=== PATIENT | male | born 1935 | race African-American/Black ===

== ENCOUNTER 2016-07-20 00:40 | Inpatient (IN) | payer MEDICARE, BC ==
[2016-07-20] MEDS ORDERED: METHYLPREDNISOLONE PF 125MG/VIAL IM ONE (00:43)
[2016-07-20] MEDS ORDERED: METHYLPREDNISOLONE PF 125MG/VIAL IVP ONE (00:45)
[2016-07-20] MEDS ORDERED: ALBUTEROL SULFATE 0.5% 5 MG/ML BTL 20ML INH SCH (00:45)
--- NOTE | 2016-07-20 01:09 | Emergency Department Record ---
History of Present Illness - General Chief Complaint: Shortness of breath Stated Complaint: SOB Time Seen by Provider: 07/20/16 00:42 Source: Patient Mode of Arrival: EMS Limitations: No limitations - History of Present Illness Initial Comments: 80 yo male presents to ED with a CC of worsening difficulty in breathing for the past 2-3 days. Patient reports a history of COPD and CHF, reports audible wheezes that did not significantly improve with albuterol at home. Patient denies fevers, chills, or recent illness. Patient denies lower extremity edema. MD Complaint: Shortness of breath Onset/Timin -: Days(s) Severity: Moderate Consistency: Intermittent Improves With: Rest Worsens With: Exertion, Lying flat, Movement Known History Of: Congestive heart failure, COPD Associated Symptoms: Cough Treatments Prior to Arrival: None - Related Data Home Oxygen Therapy: Yes Home Oxygen Amount: 2 Liters Home Medications Medication Instructions Recorded Confirmed Last Taken Amlodipine Besylate [Amlodipine 2.5 mg PO DAILY 05/11/14 07/20/16 Unknown Besylate] Atorvastatin Calcium [Lipitor] 20 mg PO QHS 05/11/14 07/20/16 07/19/16 Carvedilol [Carvedilol] 3.125 tab PO QHS 05/11/14 07/20/16 07/19/16 Allergies Allergy/AdvReac Type Severity Reaction Status Date / Time No Known Drug Allergies Allergy Verified 05/11/14 18:21 Travel Screening - Travel/Exposure Within Last 30 Days Have you traveled within the last 30 days?: No - Travel Symptoms Symptom Screening: None Review of Systems Constitutional: Denies: Chills, Fever, Malaise, Night sweats Eyes: Denies: Eye discharge, Eye pain ENT: Denies: Congestion, Ear pain, Epistaxis Respiratory: Reports: Dyspnea, Wheezes. Denies: Cough Cardiovascular: Reports: Dyspnea on exertion. Denies: Chest pain Endocrine: Denies: Fatigue, Heat or cold intolerance Gastrointestinal: Denies: Abdominal pain, Nausea, Vomiting Genitourinary: Denies: Incontinence, Retention Musculoskeletal: Denies: Arthralgia, Back pain, Gout, Joint swelling Skin: Denies: Bruising, Change in color Neurological: Denies: Abnormal gait, Confusion, Headache, Seizure Psychiatric: Denies: Anxiety Hematological/Lymphatic: Denies: Anemia, Blood Clots Past Medical History - SOCIAL HISTORY Smoking Status: Former smoker - RESPIRATORY Hx Respiratory Disorders: Yes Hx COPD: Yes (home O2- 2L) - CARDIOVASCULAR Hx Cardio Disorders: Yes Hx CHF: Yes Hx Heart Attack: Yes Hx Hypertension: Yes - NEURO Hx Neuro Disorders: No - GI Hx GI Disorders: No - Hx Genitourinary Disorders: No - ENDOCRINE Hx Endocrine Disorders: No - MUSCULOSKELETAL Hx Musculoskeletal Disorders: No - PSYCH Hx Psych Problems: No - HEMATOLOGY/ONCOLOGY Hx Hematology/Oncology Disorders: No Family Medical History Any Significant Family History?: Yes Hx Heart Disease: Father Hx HTN: Mother Physical Exam - General General Appearance: Alert, Oriented x3, Cooperative, Moderate distress Limitations: No limitations - Head Head exam: Atraumatic, Normocephalic, Normal inspection Head exam detail: negative: Abrasion, Contusion, Anton's sign, General tenderness, Hematoma, Laceration - Eye Eye exam: Normal appearance. negative: Conjunctival injection, Periorbital swelling, Periorbital tenderness, Scleral icterus - ENT Ear exam: negative: Auricular hematoma, Auricular trauma Nasal Exam: negative: Active bleeding, Discharge, Dried blood, Foreign body Mouth exam: negative: Drooling, Laceration, Muffled voice, Tongue elevation - Neck Neck exam: Normal inspection. negative: Meningismus, Tenderness - Respiratory Respiratory exam: Decreased breath sounds, Prolonged expiratory, Respiratory distress, Wheezes. negative: Rales, Rhonchi, Stridor - Cardiovascular Cardiovascular Exam: Regular rate, Normal rhythm, Normal heart sounds - GI/Abdominal GI/Abdominal exam: Soft. negative: Rebound, Rigid, Tenderness - Rectal Rectal exam: Deferred - exam: Deferred - Extremities Extremities exam: Normal inspection, Pedal edema (1+). negative: Calf tenderness, Tenderness - Back Back exam: Denies: CVA tenderness (R), CVA tenderness (L) - Neurological Neurological exam: Alert, Normal gait, Oriented X3 - Psychiatric Psychiatric exam: Normal affect, Normal mood - Skin Skin exam: Normal color. negative: Abrasion Type of lesion: negative: abrasion Course Vital Signs 07/20/16 00:40 Temperature 98.1 F Pulse Rate 83 Respiratory 18 Rate Blood Pressure 202/125 Pulse Ox 95 - Reevaluation(s) Reevaluation #1: 07/20/16 01:08 Continuous albuterol ordered over 1 hour and solumedrol IV. EKG: NSR 75 LAD, IVCD/Incomplete LBBB Nonspecific ST-T wave changes Reevaluation #2: 07/20/16 01:46 CXR: Probably RLL infiltrate Antibiotics ordered for probable CAP. Reevaluation #3: 07/20/16 02:25 Labs reviewed, Troponin 0.025, BNP 1110. Creatinine 1.7 (at baseline). Labs are otherwise grossly unremarkable for an acute process. Will admit for moderate to severe COPD exacerbation and CAP. Medical Decision Making - Lab Data Result diagrams: 07/20/16 00:50 07/20/16 00:50 Disposition Disposition: Admit Clinical Impression: COPD exacerbation, CAP (community acquired pneumonia) Disposition: Still a Patient at [facility] Decision to Admit: Admit from ER Decision to Admit Date: 07/20/16 Decision to Admit Time: 01:48 Condition: (2) Stable Forms: Patient Portal Access Time of Disposition: 02:26
[2016-07-20 01:29] LABS: BASO % 0.5 % (0-6); EOS % 3.6 % (0-6); GRAN % 61.5 % (47-80); HEMATOCRIT 38.3 % (42.0-52.0); HEMOGLOBIN 11.9 gm/dl (14.0-18.0); LYMPH % 21.4 % (16-45); MEAN CORPUSCULAR HGB CONC 31.1 g/dl (32-36); PLATELET COUNT 171 K/uL (130-400); RED BLOOD COUNT 4.12 M/uL (4.40-5.70); RED CELL DISTRIBUTION WIDTH 14.1 % (11.5-14.5); WHITE BLOOD COUNT W/O DIFF 4.4 K/uL (4.2-12.2)
[2016-07-20 01:32] LABS: MEAN CORPUSCULAR HEMOGLOBIN 28.8 pg (27-33)
[2016-07-20] MEDS ORDERED: AZITHROMYCIN 500 MG in 0.9 % SODIUM CHLORIDE 250ML 250 ML IVPB ONE (01:47)
[2016-07-20] MEDS ORDERED: CEFTRIAXONE SODIUM 1 GM in 0.9 % SODIUM CHLORIDE 100ML 100 ML IVPB ONE (01:47)
[2016-07-20 01:58] LABS: ALB/GLOB RATIO 1.2 (1.1-1.8); ALBUMIN 3.9 gm/dL (3.5-5.0); BILIRUBIN,TOTAL 0.41 mg/dL (0.2-1.3); CREATININE 1.7 mg/dL (0.66-1.25); TOTAL PROTEIN 7.2 gm/dL (6.3-8.2)
[2016-07-20 02:11] LABS: CKMB 0.9 ug/L (0-6); TROPONIN I 0.025 ng/mL (0.00-0.034)
[2016-07-20] MEDS ORDERED: AZITHROMYCIN 500 MG in 0.9 % SODIUM CHLORIDE 250ML 250 ML IVPB SCH (03:21)
[2016-07-20] MEDS ORDERED: CEFTRIAXONE SODIUM 1 GM in 0.9 % SODIUM CHLORIDE 100ML 100 ML IVPB SCH (03:21)
[2016-07-20] MEDS ORDERED: 0.9 % SODIUM CHLORIDE 1000ML 1,000 ML IV PRN (03:21)
[2016-07-20] MEDS: IPRATROPIUM/ALBUTEROL (0.5MG/3MG) NEB INH PRN (05:06)
[2016-07-20] MEDS: ALBUTEROL SULFATE (0.083%) 2.5 MG/3 ML NEB INH SCH ×5 (06:25→21:49)
[2016-07-20] MEDS: AMLODIPINE BESYLATE 5MG TAB PO SCH (09:43)
[2016-07-20] MEDS ORDERED: CARVEDILOL 3.125 MG TABLET PO SCH ×3 (10:00→22:00)
[2016-07-20] MEDS ORDERED: METHYLPREDNISOLONE PF 125MG/VIAL IVP SCH (10:00)
[2016-07-20] MEDS ORDERED: AMLODIPINE BESYLATE 2.5 MG PO SCH (10:00)
[2016-07-20] MEDS: CARVEDILOL 12.5 MG TABLET PO SCH ×2 (11:19→22:24)
[2016-07-20] MEDS: CEFTRIAXONE SODIUM 1 GM in 0.9 % SODIUM CHLORIDE 100ML 100 ML IVPB SCH (15:54)
[2016-07-20] MEDS: PREDNISONE 20 MG TAB PO SCH ×2 (16:54→22:30)
[2016-07-20] MEDS: ENOXAPARIN 40 MG/0.4 ML SYR SQ SCH (16:54)
[2016-07-20] MEDS: ATORVASTATIN 20 MG TABLET PO SCH (22:25)
[2016-07-21] MEDS: ALBUTEROL SULFATE (0.083%) 2.5 MG/3 ML NEB INH SCH ×6 (01:24→21:47)
[2016-07-21] MEDS ORDERED: CEFTRIAXONE SODIUM 1 GM in 0.9 % SODIUM CHLORIDE 100ML 100 ML IVPB SCH (02:00)
[2016-07-21] MEDS ORDERED: AZITHROMYCIN 500 MG in 0.9 % SODIUM CHLORIDE 250ML 250 ML IVPB SCH (03:00)
[2016-07-21] MEDS: CEFTRIAXONE SODIUM 1 GM in 0.9 % SODIUM CHLORIDE 100ML 100 ML IVPB SCH ×2 (03:01→15:00)
--- NOTE | 2016-07-21 07:29 | RADIOLOGY REPORT ---
EXAM: CHEST, AP PORTABLE VIEW HISTORY: PATIENT HAS ACUTE SHORTNESS OF BREATH. TECHNIQUE: A single AP portable view of the chest was provided along with the comparison study dated 07/12/13. FINDINGS: Cardiomegaly is noted. Tortuosity of the thoracic aorta is noted. Prominent hilar pulmonary vasculature are identified. Bilateral lower lobe atelectasis and/or infiltrate is noted. Mild to moderate bilateral pleural effusions are identified. No pneumothorax is noted. IMPRESSION: BILATERAL LOWER LOBE INFILTRATES ARE IDENTIFIED WITH PLEURAL EFFUSIONS. FOLLOW- UP PA AND LATERAL VIEWS OF THE CHEST CAN BE OBTAINED UNTIL RESOLUTION OF FINDINGS. JOB NUMBER: [id number] MTDD
--- NOTE | 2016-07-21 09:31 | History and Physical Report ---
DATE OF DICTATION: 07/20/2016 at 1:51 p.m. CHIEF COMPLAINT: Dyspnea for the last two to three days. Cough and congestion. HISTORY OF PRESENT ILLNESS: The patient also ran out of his blood pressure medications a couple of months ago and his inhaler about a year ago or two years ago; it is hard to tell from his history. 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 He kind of goes to the doctor when he runs out of medications and as needed. He states it has been a long time since he has seen his baller tender. He was admitted to [facility] in 2013 with a slightly elevated troponin. It is not clear if he had a myocardial infarction or was just diagnosed with coronary artery disease after that. PAST MEDICAL HISTORY: He has congestive heart failure. He had a myocardial infarction possibly in 2013. Hypertension. He is on home oxygen only at night for chronic obstructive pulmonary disease. PAST SURGICAL HISTORY: He had an aortic aneurysm repair, date unknown by the chart. I will have to ask him that later. MEDICATIONS ON ADMISSION: Amlodipine; he has run out of this. It states in the chart here he takes 10 mg a day. Although according to the nurse the amlodipine may be taken at 5.0 mg a day. Carvedilol 3.125 mg b.i.d., but I believe that has been revised to 25 mg b.i.d. Lipitor 20 mg at h.s. He is on home oxygen only at night two liters per nasal cannula. He has had inhalers in the past, but he ran out of those and never refilled them. ALLERGIES: No known drug allergies. FAMILY/PSYCHOSOCIAL HISTORY: His father had heart disease. His mother had hypertension. He is a former smoker; he quit smoking in 2010. No alcohol or drug use. REVIEW OF SYSTEMS: HEENT: He does have some congestion and rhinorrhea; worse the last two or three days. He states that his has also had congestion and a cough for the last week. He also has a 13-year-old grandson who has a cough and congestion. Cardiovascular: No chest pain or palpitations. Respiratory: He is short of breath, especially with exertion. Last night he was more short of breath and required breathing treatments. He was seen in the emergency department by Dr. Shultz and was admitted to the hospital. Gastrointestinal: No nausea, vomiting, diarrhea, black stools, or bloody stools. Genitourinary: He has nocturia times two. He urinates about every three hours. No pain on urination or blood in the urine. Musculoskeletal: No joint or bone abnormalities. However, he does have diffuse arthritis. Neurologic: No cerebrovascular accident, paralysis, or paraesthesias. Endocrine: No diabetes or thyroid disease. Integument: No rash, ulcers, changing moles, or yellow skin. PHYSICAL EXAMINATION: General: Height is 5 feet, 9 inches. Weight is 202 pounds. Vital Signs: Temperature is 97.8, pulse is 89, blood pressure is 165/89, respiratory rate is 16, pulse oximetry is 96% on two liters per nasal cannula. Looking back since he was admitted through the emergency room last night, his pulse oximetry has been good with two liters per nasal cannula. His blood pressure was much higher when he came into the emergency room; it was 202/125. It has been high throughout the night. It has been coming down since he has been on the correct medications. HEENT: Pupils are equal, round, and reactive to light and accommodation. Extraocular muscles are intact. The throat is clear. The nose is clear. The tympanic membranes are uriostegui. Neck: The neck is supple. No jugular venous distension. No hepatojugular reflex. No carotid bruit. The thyroid is smooth. Cardiovascular: Regular rate and rhythm without murmurs, clicks, rubs, or gallops. Respiratory: Decreased breathing bilaterally. There is scant wheezing bilaterally, but he says he was wheezing quite a bit when he came into the emergency department last night. Abdomen: Soft and nontender. No hepatosplenomegaly. No masses. No tenderness. Bowel sounds are active. No bruit. Extremities: No pitting edema. No cyanosis. No clubbing. Full range of motion. Peripheral pulses are good. Breasts: Normal male breasts. Rectal Examination: Deferred. Genitalia: Deferred. Neurological Examination: Cranial nerves II through XII are intact. No gross defect. Sensation is normal. Strength is normal. Deep tendon reflexes are equal bilaterally. Babinski is negative. Mental Status: Alert and oriented times three. IMPRESSIONS: 1. Bilateral pneumonia. 2. Acute exacerbation of chronic obstructive pulmonary disease. 3. Coronary artery disease with a myocardial infarction possibly in 2013. 4. Status post aortic aneurysm repair many years ago. 5. Hypercholesterolemia. 6. Hypoxia requiring home oxygen when sleeping. PLAN: Intravenous Rocephin, intravenous azithromycin, oxygen therapy. Prednisone 20 mg b.i.d. after the intravenous prednisone he had today. Will start that today. Breathing treatments with DuoNeb q. four hours while awake and albuterol every one to two hours p.r.n. Dung Galaviz D.O. Date Time JOB NUMBER: [id number] MTDD
[2016-07-21] MEDS: ENOXAPARIN 40 MG/0.4 ML SYR SQ SCH (09:52)
[2016-07-21] MEDS: AMLODIPINE BESYLATE 5MG TAB PO SCH (09:52)
[2016-07-21] MEDS: CARVEDILOL 12.5 MG TABLET PO SCH ×2 (09:52→20:54)
[2016-07-21] MEDS: PREDNISONE 20 MG TAB PO SCH ×2 (09:53→20:55)
[2016-07-21] MEDS: ATORVASTATIN 20 MG TABLET PO SCH (20:55)
[2016-07-22] MEDS: CARVEDILOL 12.5 MG TABLET PO SCH ×3 (00:57→21:17)
[2016-07-22] MEDS: ATORVASTATIN 20 MG TABLET PO SCH ×2 (00:57→21:17)
[2016-07-22] MEDS: PREDNISONE 20 MG TAB PO SCH ×3 (00:58→21:18)
[2016-07-22] MEDS: CEFTRIAXONE SODIUM 1 GM in 0.9 % SODIUM CHLORIDE 100ML 100 ML IVPB SCH ×2 (00:59→15:35)
[2016-07-22] MEDS: IPRATROPIUM/ALBUTEROL (0.5MG/3MG) NEB INH PRN (02:50)
[2016-07-22] MEDS: ALBUTEROL SULFATE (0.083%) 2.5 MG/3 ML NEB INH SCH ×6 (06:14→21:31)
[2016-07-22] MEDS: AMLODIPINE BESYLATE 5MG TAB PO SCH (09:26)
[2016-07-22] MEDS: ENOXAPARIN 40 MG/0.4 ML SYR SQ SCH (09:26)
[2016-07-22] MEDS: AZITHROMYCIN 500 MG TABLET PO SCH (09:27)
[2016-07-22 10:26] LABS: CREATININE 1.7 mg/dL (0.66-1.25)
[2016-07-22 10:27] LABS: CKMB 1.7 ug/L (0-6); TROPONIN I 0.027 ng/mL (0.00-0.034)
[2016-07-23] MEDS ORDERED: LOPERAMIDE 2 MG CAPSULE PO PRN (02:03)
[2016-07-23] MEDS: CEFTRIAXONE SODIUM 1 GM in 0.9 % SODIUM CHLORIDE 100ML 100 ML IVPB SCH (02:07)
[2016-07-23] MEDS: ALBUTEROL SULFATE (0.083%) 2.5 MG/3 ML NEB INH SCH ×2 (02:29→06:08)
--- NOTE | 2016-07-23 08:14 | Discharge Note ---
Discharge Note - Date Date of Discharge Note: 07/23/16 Condition: (2) Stable Additional Instructions: follow up with dr. Galaviz on thursdayjul 28 use home oxygen 2 liters per minute Forms: Patient Portal Access
--- NOTE | 2016-07-23 08:44 | Discharge Note ---
Discharge Note - Date Date of Discharge Note: 07/23/16 Disposition: Home, Self-Care Condition: (2) Stable Additional Instructions: follow up with dr. Galaviz on thursdayjul 28 use home oxygen 2 liters per minute Prescriptions: Prednisone [Prednisone 10Mg] 30 mg PO DAILYWM #18 tab Albuterol Sulfate [Proair Hfa] 1 - 2 puff IH .EVERY 4-6 HOURS PRN #1 inhaler PRN Reason: Difficulty In Breathing Azithromycin [Zithromax] 500 mg PO DAILY #7 tab Referrals: Dung Galaviz D.O. [Primary Care Provider] - Forms: Patient Portal Access
[2016-07-23] MEDS: CARVEDILOL 12.5 MG TABLET PO SCH (09:20)
[2016-07-23] MEDS: ENOXAPARIN 40 MG/0.4 ML SYR SQ SCH (09:21)
[2016-07-23] MEDS: AMLODIPINE BESYLATE 5MG TAB PO SCH (09:21)
[2016-07-23] MEDS: AZITHROMYCIN 500 MG TABLET PO SCH (09:22)
[2016-07-23] MEDS ORDERED: IPRATROPIUM/ALBUTEROL (0.5MG/3MG) NEB INH SCH (10:00)
[2016-07-23] MEDS ORDERED: PREDNISONE 10 MG TAB PO SCH (10:00)
[2016-07-23] MEDS ORDERED: ALBUTEROL SULFATE (0.083%) 2.5 MG/3 ML NEB INH SCH (10:00)
--- NOTE | 2016-07-25 08:17 | Discharge Summary ---
DATE OF DISCHARGE: 07/23/2016 at about 9:00 a.m. DISCHARGE DIAGNOSES: 1. Pneumonia. 2. Acute exacerbation of chronic obstructive pulmonary disease. 3. Status post aortic aneurysm repair many years ago. 4. Hypercholesterolemia. 5. Uses oxygen at home two liters per minute with hypoxia. 6. A history of coronary artery disease. ATTENDING PHYSICIAN: Dung Galaviz D.O. REASON FOR HOSPITALIZATION: Dyspnea for the last two to three days. Cough and congestion. HISTORY OF THE PRESENT ILLNESS: The patient ran out of his blood pressure medication a couple of months ago and his blood pressure has been very high. He came to the emergency department with dyspnea and was admitted to the hospital by Dr. Shultz for pneumonia. SIGNIFICANT FINDINGS: LABORATORY DATA: White blood cell count was 4,400, hemoglobin was 11.9. On the last set of electrolytes the potassium was 3.9. BUN was 32 and creatinine was 1.7. Cardiac enzymes were negative times two time points. His brain natriuretic peptide was 1,110 which is normal for his age. C. difficile toxin is pending. He had two bouts of diarrhea last night. However, he was not able to give us a stool after having one Imodium. This will be followed up as an outpatient. DIAGNOSTIC DATA: Chest x-ray showed bilateral lower lobe infiltrates that are identified with pleural effusions. The radiologist recommended a follow up PA and lateral chest after clinically improved. An echocardiogram was done because of cardiomegaly on his chest x-ray, and it showed an ejection fraction of 54 percent. There is a moderate mitral regurgitation and mild tricuspid insufficiency. There is moderate pulmonary hypertension with RVSP of 46 mm Hg. THERAPY PROVIDED: The patient was given intravenous steroids and intravenous Rocephin and azithromycin. The patient gradually improved with the breathing treatments, oxygen therapy, and cautious intravenous hydration. CONDITION AT DISCHARGE: Much improved but still short of breath when he walks a distance. He needs his oxygen at two liters per minute per nasal cannula. DISCHARGE INSTRUCTIONS: Follow up with Dr. Galaviz on July 28Thursday. Continue azithromycin 500 mg q. daily for seven days. Prednisone 10 mg three pills a day for three days and then two pills a day for three days, and then one pill a day for three days. Coreg 25 mg b.i.d. Amlodipine 10 mg q. daily, Lipitor 20 mg q. daily. He does not have any inhalers or nebulizers at home as he ran out. We will send him home with an albuterol inhaler two puffs q. four hours p.r.n. He is to use his home oxygen at two liters per minute per nasal cannula. We will check him to see if it needs it higher when he is ambulating before discharge. Dung Galaviz D.O. Date Time JOB NUMBER: [id number] MTDD
== END 2016-07-23 10:10 | disposition home or self-care (01) | DRG 195 ==
LOC: EDBD → ER 00:40 → MEDSURG 03:09 → OBSVTOIN 13:41
PROVIDERS: ADMIT Emergency Medicine; ATTEND Emergency Medicine
DX: J18.9 Pneumonia, unspecified organism (principal); J44.9 Chronic obstructive pulmonary disease, unspecified; I25.10 Atherosclerotic heart disease of native coronary artery without angina pectoris; E78.00 Pure hypercholesterolemia, unspecified; I50.9 Heart failure, unspecified; I10 Essential (primary) hypertension
CPT/HCPCS: 71010; 80048; 80053; 82550; 82553; 83880; 84484; 85025; 93005; 93010; 93041; 93306; 94620; 94640; 94644; 94760; 94761; 96365; 96375; 99223; 99233; 99239; 99285; J0456; J1650; J2930; J7050; J7512; J7613

== ENCOUNTER 2017-04-13 19:19 | Emergency (ER) | payer MEDICARE, BC ==
[2017-04-13] MEDS ORDERED: METHYLPREDNISOLONE PF 125MG/VIAL IVP ONE (19:29)
[2017-04-13] MEDS ORDERED: IPRATROPIUM/ALBUTEROL (0.5MG/3MG) NEB INH ONE (19:29)
--- NOTE | 2017-04-13 19:35 | Emergency Department Record ---
History of Present Illness - General Chief Complaint: Shortness of breath Stated Complaint: SHORTNESS OF BREATH,WHEEZING Time Seen by Provider: 04/13/17 19:28 Source: Patient Mode of Arrival: Ambulatory Limitations: No limitations - History of Present Illness Initial Comments: 81 yo male presents to ED for evaluation of difficulty in breathing that worsened today. Patient denies fevers, chills, or productive cough symptoms. Patient does reports history of COPD and CHF, reports that he has had symptoms "for years". Patient denies lower extremity edema symptoms, denies chest pain today. MD Complaint: Shortness of breath Onset/Timin -: Days(s) Radiation: Back Severity: Moderate Improves With: Bronchodilators, Oxygen Worsens With: Exertion, Movement Known History Of: Asthma, COPD Associated Symptoms: Cough Treatments Prior to Arrival: None - Related Data Home Oxygen Therapy: Yes Home Oxygen Amount: 2 Liters Previous Rx's Medication Instructions Recorded Albuterol Sulfate [Proair Hfa] 1 - 2 puff IH .EVERY 4-6 HOURS PRN 07/23/16 #1 inhaler Prednisone [Prednisone 20Mg] 20 mg PO TID #12 tab 04/13/17 Allergies Allergy/AdvReac Type Severity Reaction Status Date / Time No Known Drug Allergies Allergy Verified 05/11/14 18:21 Travel Screening - Travel/Exposure Within Last 30 Days Have you traveled within the last 30 days?: No Review of Systems Constitutional: Denies: Chills, Fever, Malaise, Night sweats Eyes: Denies: Eye discharge, Eye pain ENT: Denies: Congestion, Ear pain, Epistaxis, Hearing loss Respiratory: Reports: Cough, Dyspnea, Wheezes Cardiovascular: Reports: Dyspnea on exertion. Denies: Chest pain Endocrine: Denies: Fatigue, Heat or cold intolerance Gastrointestinal: Denies: Abdominal pain, Nausea, Vomiting Genitourinary: Denies: Incontinence, Retention Musculoskeletal: Denies: Arthralgia, Back pain, Gout, Joint swelling Skin: Denies: Bruising, Change in color Neurological: Denies: Abnormal gait, Confusion, Headache Psychiatric: Denies: Anxiety Hematological/Lymphatic: Denies: Anemia, Blood Clots Past Medical History - SOCIAL HISTORY Smoking Status: Former smoker Drug Use: None - RESPIRATORY Hx Respiratory Disorders: Yes Hx COPD: Yes (home O2- 2L) - CARDIOVASCULAR Hx Cardio Disorders: Yes Hx CHF: Yes Hx Heart Attack: Yes Hx Hypertension: Yes - NEURO Hx Neuro Disorders: No - GI Hx GI Disorders: No - Hx Genitourinary Disorders: No - ENDOCRINE Hx Endocrine Disorders: No - MUSCULOSKELETAL Hx Musculoskeletal Disorders: No - PSYCH Hx Psych Problems: No - HEMATOLOGY/ONCOLOGY Hx Hematology/Oncology Disorders: No Family Medical History Hx Heart Disease: Father Hx HTN: Mother Physical Exam - General General Appearance: Alert, Oriented x3, Cooperative, Moderate distress, Other ( patient has audible wheezes present bilterally, tachynic on examination) Limitations: No limitations - Head Head exam: Atraumatic, Normocephalic, Normal inspection Head exam detail: negative: Abrasion, Contusion, Anton's sign, General tenderness, Hematoma, Laceration - Eye Eye exam: Normal appearance. negative: Conjunctival injection, Periorbital swelling, Periorbital tenderness, Scleral icterus - ENT Ear exam: negative: Auricular hematoma, Auricular trauma Nasal Exam: negative: Active bleeding, Discharge, Dried blood, Foreign body Mouth exam: negative: Drooling, Laceration, Muffled voice, Tongue elevation - Neck Neck exam: Normal inspection. negative: Meningismus, Tenderness - Respiratory Respiratory exam: Decreased breath sounds, Prolonged expiratory, Respiratory distress, Wheezes - Cardiovascular Cardiovascular Exam: Regular rate, Normal rhythm, Normal heart sounds - GI/Abdominal GI/Abdominal exam: Soft. negative: Rebound, Rigid, Tenderness - Rectal Rectal exam: Deferred - exam: Deferred - Extremities Extremities exam: Normal inspection. negative: Calf tenderness, Pedal edema, Tenderness - Back Back exam: Denies: CVA tenderness (R), CVA tenderness (L) - Neurological Neurological exam: Alert, Normal gait, Oriented X3 - Psychiatric Psychiatric exam: Normal affect, Normal mood - Skin Skin exam: Normal color. negative: Abrasion Type of lesion: negative: abrasion Course Vital Signs 04/13/17 19:25 Temperature 97.6 F Pulse Rate 95 H Respiratory 26 H Rate Blood Pressure 140/104 Pulse Ox 98 - Reevaluation(s) Reevaluation #1: 04/13/17 19:47 EKG: NSR 83 LAD, Incomplete LBBB No acute ST-T wave changes No significant change from 07/20/16. Reevaluation #2: 04/13/17 19:59 Patient reassessed, clinically much improved. Labs reviewed, BUN 31/Creatinine 1.9, Potassium 4.8 (at baseline). Labs are otherwise grossly unremarkable for an acute process. Reevaluation #3: 04/13/17 20:35 CXR: Hyperinflation, scarring/atelectasis left base, nothing acute. Patient was updated on all results, offered repeat albuterol treatment, patient declined. Patient reports that he is feeling much better, and that he wants to go home. I did discuss observation stay with both the patient and his SO, patient declined stating that he feels much better and appears stable for discharge at this time. Medical Decision Making - Lab Data Result diagrams: 04/13/17 19:35 04/13/17 19:35 Disposition Disposition: Discharge Clinical Impression: COPD exacerbation CRF (chronic renal failure) Qualifiers: Chronic kidney disease stage: stage 3 (moderate) Qualified Code(s): N18.3 - Chronic kidney disease, stage 3 (moderate) Disposition: Home, Self-Care Condition: (2) Stable Instructions: COPD (Chronic Obstructive Pulmonary Disease) (ED) Additional Instructions: Return to ED if your symptoms worsen or if you have any concerns. Prednisone as directed. Follow-up with your family doctor in 1-3 days as directed. Prescriptions: Prednisone [Prednisone 20Mg] 20 mg PO TID #12 tab Forms: Patient Portal Access Time of Disposition: 20:39 Quality - Quality Measures Quality Measures: N/A - Blood Pressure Screening Does Patient Have Any of the Following: Active Dx of HTN Blood Pressure Classification: Hypertensive Reading Systolic Measurement: 140 Diastolic Measurement: 104 Screening for High Blood Pressure: Patient Exclusion, Hx of HTN [G9744] First Hypertensive Follow-up Interventions: Referral to alternative/primary care provider.
[2017-04-13 19:40] LABS: BASO % 0.1 % (0-6); EOS % 3.2 % (0-6); GRAN % 73.1 % (47-80); HEMATOCRIT 40.1 % (42.0-52.0); HEMOGLOBIN 12.5 gm/dl (14.0-18.0); MEAN CELL VOLUME 90.9 fl (81-97); MEAN CORPUSCULAR HEMOGLOBIN 28.3 pg (27-33); MEAN CORPUSCULAR HGB CONC 31.2 g/dl (32-36); MEAN PLATELET VOLUME 9.3 fl (7.4-10.4); MONO % 7.6 % (0-9); PLATELET COUNT 187 K/uL (130-400); RED BLOOD COUNT 4.41 M/uL (4.40-5.70); RED CELL DISTRIBUTION WIDTH 13.3 % (11.5-14.5); WHITE BLOOD COUNT W/O DIFF 7.1 K/uL (4.2-12.2)
[2017-04-13 19:53] LABS: BLOOD UREA NITROGEN 31 mg/dL (8-23); CREATININE 1.9 mg/dL (0.7-1.2); EST GLOMERULAR FILTRATION RATE 36 mL/min; GLUCOSE,RANDOM 128 mg/dL (74-109)
[2017-04-13 19:56] LABS: ALB/GLOB RATIO 1.3 (1.1-1.8); ALBUMIN 4.5 g/dL (4.0-5.0); ALKALINE PHOSPHATASE 80 U/L (40-129); ALT/SGPT 10 U/L (<41); AST/SGOT 21 U/L (10.0-50.0)
--- NOTE | 2017-04-14 13:53 | RADIOLOGY REPORT ---
EXAM: CHEST, TWO VIEWS HISTORY: DIFFICULTY IN BREATHING. WHEEZING. TECHNIQUE: Upright PA and lateral views of the chest were obtained. Comparison: Two view chest radiographic examination dated 10/13/16. FINDINGS: The heart is not enlarged and the pulmonary vasculature is nondilated. The thoracic aorta is tortuous and atherosclerotic, stable. A calcified granuloma is again noted in the lateral left lung base measuring 3.5 mm. Minor linear scarring versus atelectasis is now demonstrated in the lateral left lung base. The lungs and pleural spaces are otherwise clear. There are mild to moderate degenerative changes scattered throughout the visualized spine associated with mild S-shaped thoracolumbar scoliosis. IMPRESSION: MINOR NEW LINEAR SCARRING VERSUS ATELECTASIS IN THE LATERAL LEFT LUNG BASE. OTHERWISE, NO SIGNIFICANT CHANGE SINCE 10/13/16. CHRONIC FINDINGS, DISCUSSED ABOVE. JOB NUMBER: [id number] MTDD
== END 2017-04-13 20:46 | disposition home or self-care (01) ==
LOC: ER 19:19
DX: J44.1 Chronic obstructive pulmonary disease with (acute) exacerbation (principal); N18.3 Chronic kidney disease, stage 3 (moderate); I50.9 Heart failure, unspecified; I13.0 Hypertensive heart and chronic kidney disease with heart failure and stage 1 through stage 4 chronic kidney disease, or unspecified chronic kidney disease; I25.2 Old myocardial infarction; Z87.891 Personal history of nicotine dependence; Z99.81 Dependence on supplemental oxygen
CPT/HCPCS: 71020; 80053; 83880; 84484; 85025; 93005; 93010; 94640; 96374; 99284; J2930

== ENCOUNTER 2017-05-22 16:01 | Inpatient (IN) | payer MEDICARE, BC ==
[2017-05-22] MEDS ORDERED: METHYLPREDNISOLONE PF 125MG/VIAL IVP ONE (16:07)
[2017-05-22] MEDS ORDERED: IPRATROPIUM/ALBUTEROL (0.5MG/3MG) NEB INH ONE (16:07)
--- NOTE | 2017-05-22 16:18 | Emergency Department Record ---
History of Present Illness - General Chief Complaint: Shortness of breath Stated Complaint: SUDEEP/COPD/CHF Time Seen by Provider: 05/22/17 16:05 Source: Patient, Family Mode of Arrival: Wheelchair Limitations: No limitations - History of Present Illness Initial Comments: 81 yo male with a history of COPD, prior pneumonia and CHF presents with shortness of breath. He states he began coughing last night. The cough has been non productive. He feels like he has sputum but is unable to cough it up. No leg swelling. He has used his breathing treatments at home without improvement. He does have some discomfort with coughing. It hurts to cough on the left. No NVD. No rash. He is a former smoker. PCP is Dr Galaviz. The patient does not see a music leader. He has seen a planning lead in the past. He states he has decided against major procedures or surgeries in the future given his age. 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 He does states he is full code however in the short term. He states his breathing has not been good for a long time but worse since the onset of symptoms last night. He did get a flu shot this year. He quit smoking in 2010 after many years MD Complaint: Cough, Shortness of breath Onset/Timin -: Days(s) (2) Consistency: Constant Improves With: Nothing Worsens With: Coughing, Exertion Known History Of: COPD Context: Recent URI Associated Symptoms: Chest pain, Cough Treatments Prior to Arrival: None - Related Data Home Oxygen Therapy: Yes Home Oxygen Amount: 2 Liters Previous Rx's Medication Instructions Recorded Albuterol Sulfate [Proair Hfa] 1 - 2 puff IH .EVERY 4-6 HOURS PRN 07/23/16 #1 inhaler Prednisone [Prednisone 20Mg] 20 mg PO TID #12 tab 04/13/17 Allergies Allergy/AdvReac Type Severity Reaction Status Date / Time No Known Drug Allergies Allergy Verified 05/22/17 16:09 Travel Screening - Travel/Exposure Within Last 30 Days Have you traveled within the last 30 days?: No - Travel/Exposure Within Last Year Have you traveled outside the [place] in the last year?: No - Additonal Travel Details Have you been exposed to anyone with a communicable illness?: No - Travel Symptoms Symptom Screening: None Review of Systems Constitutional: Denies: Chills, Fever, Malaise, Weakness Eyes: Denies: Eye discharge ENT: Reports: Congestion. Denies: Ear pain, Throat pain Respiratory: Reports: Cough, Dyspnea, Wheezes. Denies: Hemoptysis Cardiovascular: Reports: Chest pain. Denies: Palpitations, Syncope Endocrine: Denies: Fatigue, Polydipsia, Polyuria Gastrointestinal: Denies: Abdominal pain, Diarrhea, Nausea, Vomiting Genitourinary: Denies: Dysuria, Frequency, Hematuria Musculoskeletal: Denies: Arthralgia, Back pain, Joint swelling, Myalgia Skin: Denies: Bruising, Change in color, Rash Neurological: Denies: Headache, Numbness, Weakness Psychiatric: Denies: Anxiety Hematological/Lymphatic: Denies: Blood Clots, Easy bleeding, Easy bruising, Swollen glands Past Medical History - SOCIAL HISTORY Smoking Status: Former smoker Alcohol Use: None Drug Use: None - RESPIRATORY Hx Respiratory Disorders: Yes Hx COPD: Yes (home O2- 2L) - CARDIOVASCULAR Hx Cardio Disorders: Yes Hx CHF: Yes Hx Heart Attack: Yes Hx Hypertension: Yes - NEURO Hx Neuro Disorders: No - GI Hx GI Disorders: No - Hx Genitourinary Disorders: No - ENDOCRINE Hx Endocrine Disorders: No - MUSCULOSKELETAL Hx Musculoskeletal Disorders: Yes Hx Arthritis: Yes - PSYCH Hx Psych Problems: No - HEMATOLOGY/ONCOLOGY Hx Hematology/Oncology Disorders: No Family Medical History Any Significant Family History?: No Hx Heart Disease: Father Hx HTN: Mother Physical Exam - General General Appearance: Alert, Oriented x3, Cooperative, No acute distress Limitations: No limitations - Head Head exam: Atraumatic, Normocephalic, Normal inspection - Eye Eye exam: Normal appearance, PERRL. negative: Conjunctival injection, Scleral icterus - ENT ENT exam: Normal exam, Mucous membranes moist Ear exam: Normal external inspection Nasal Exam: Normal inspection Mouth exam: Normal external inspection Teeth exam: Normal inspection - Neck Neck exam: Normal inspection, Full ROM. negative: Lymphadenopathy, Tenderness - Respiratory Respiratory exam: Accessory muscle use, Decreased breath sounds, Prolonged expiratory, Rhonchi, Wheezes. negative: Normal lung sounds bilaterally, Chest wall tenderness, Respiratory distress - Cardiovascular Cardiovascular Exam: Normal rhythm, Tachycardia. negative: Regular rate Peripheral Pulses: 2+: Radial (R), Radial (L) - GI/Abdominal GI/Abdominal exam: Soft. negative: Tenderness - Rectal Rectal exam: Deferred - exam: Deferred - Extremities Extremities exam: Normal inspection, Full ROM, Normal capillary refill. negative: Pedal edema, Tenderness - Back Back exam: Reports: Normal inspection. Denies: CVA tenderness (R), CVA tenderness (L) - Neurological Neurological exam: Alert, Oriented X3. negative: Altered - Psychiatric Psychiatric exam: Normal affect, Normal mood - Skin Skin exam: Dry, Intact, Normal color, Warm Course Vital Signs 05/22/17 16:02 Temperature 98.1 F Pulse Rate 110 H Respiratory 24 Rate Blood Pressure 195/91 Pulse Ox 89 L - Reevaluation(s) Reevaluation #1: 05/22/17 16:38 The patient did get some relief with his Duoneb treatment. Better air exchange. 05/22/17 17:10 The CXR was read as COPD that is stable. No infiltrate or CHF The CMP , CBC were reviewed. No acute changes. 05/22/17 17:11 The Troponin is normal Mild increase in BNP at 619 05/22/17 17:12 CR is 1.6 which is better than baseline. 05/22/17 17:32 EKG Sinus tachycardia rate 109, LBBB, axis L, intervals QRS 128, ST CW LBBB, some movement artifact from breathing 05/22/17 17:37 Current BP 139/87 05/22/17 18:05 The case was discussed with Graciela Vincent of the admission service He will be full code although he expressed he is of the mindset that he does not want anything aggressive given his age His lung have improved air exchange with mild wheezing. He reports no shortness of breath or discomfort. 05/22/17 18:06 Medical Decision Making - Lab Data Result diagrams: 05/22/17 16:20 05/22/17 16:20 Disposition Disposition: Admit Clinical Impression: COPD exacerbation Disposition: Still a Patient at [facility] Decision to Admit: Admit from ER Decision to Admit Date: 05/22/17 Decision to Admit Time: 17:13 Condition: (2) Stable Time of Disposition: 17:13 Quality - Quality Measures Quality Measures: N/A - Blood Pressure Screening View Details: Yes Does Patient Have Any of the Following: No Blood Pressure Classification: Pre-Hypertensive BP Reading Systolic Measurement: 136 Diastolic Measurement: 70 Screening for High Blood Pressure: < Pre-Hypertensive BP, F/U Documented > [ [id number]] Pre-Hypertensive Follow-up Interventions: Referral to alternative/primary care provider.
[2017-05-22 16:45] LABS: BASO % 0.1 % (0-6); EOS % 0.8 % (0-6); HEMATOCRIT 39.2 % (42.0-52.0); HEMOGLOBIN 12.3 gm/dl (14.0-18.0); LYMPH % 5.8 % (16-45); MEAN CORPUSCULAR HEMOGLOBIN 28.5 pg (27-33); MEAN CORPUSCULAR HGB CONC 31.4 g/dl (32-36); MEAN PLATELET VOLUME 9.2 fl (7.4-10.4); MONO % 7.7 % (0-9); PLATELET COUNT 220 K/uL (130-400); RED BLOOD COUNT 4.31 M/uL (4.40-5.70); RED CELL DISTRIBUTION WIDTH 13.4 % (11.5-14.5); WHITE BLOOD COUNT W/O DIFF 8.6 K/uL (4.2-12.2)
[2017-05-22 16:50] LABS: INR 1.05; PARTIAL THROMBOPLASTIN TIME 27.4 SECONDS (24.5-39.1); PROTHROMBIN TIME (PATIENT) 11.3 SECONDS (9.5-12.1)
[2017-05-22 16:51] LABS: BLOOD UREA NITROGEN 24 mg/dL (8-23); CREATININE 1.6 mg/dL (0.7-1.2); EST GLOMERULAR FILTRATION RATE 44 mL/min
[2017-05-22 16:52] LABS: TOTAL PROTEIN 7.9 g/dL (6.6-8.7)
[2017-05-22 16:54] LABS: GLUCOSE,RANDOM 109 mg/dL (74-109)
[2017-05-22 16:57] LABS: ALB/GLOB RATIO 1.3 (1.1-1.8); ALBUMIN 4.4 g/dL (4.0-5.0); ALKALINE PHOSPHATASE 92 U/L (40-129); ALT/SGPT 9 U/L (<41); AST/SGOT 17 U/L (10.0-50.0)
[2017-05-22] MEDS ORDERED: AZITHROMYCIN 500 MG TABLET PO ONE (17:13)
[2017-05-22] MEDS ORDERED: CEFTRIAXONE SODIUM 1 GM in 0.9 % SODIUM CHLORIDE 100ML 100 ML IVPB ONE (17:13)
[2017-05-22] MEDS ORDERED: ALBUTEROL SULFATE (0.083%) 2.5 MG/3 ML NEB INH PRN (18:23)
[2017-05-22] MEDS ORDERED: ACETAMINOPHEN 500 MG TABLET PO PRN (18:23)
[2017-05-22] MEDS: IPRATROPIUM/ALBUTEROL (0.5MG/3MG) NEB INH SCH ×2 (20:10→23:10)
[2017-05-22] MEDS: CARVEDILOL 12.5 MG TABLET PO SCH (22:53)
[2017-05-22] MEDS: ATORVASTATIN 20 MG TABLET PO SCH (22:53)
[2017-05-23] MEDS: IPRATROPIUM/ALBUTEROL (0.5MG/3MG) NEB INH SCH ×6 (04:08→21:43)
--- NOTE | 2017-05-23 08:10 | RADIOLOGY REPORT ---
EXAM: CHEST 2 VIEWS HISTORY: COUGH AND WHEEZING. DIFFICULTY BREATHING FOR THE PAST TWO TO THREE DAYS. TECHNIQUE: PA and lateral upright views of the chest were obtained. COMPARISON: April 13, 2017. FINDINGS: The heart is normal in size. There is tortuosity of the aorta. The mediastinum and pulmonary vasculature are normal. A stable calcified granuloma is present within the left lower lung. There are no acute infiltrates or effusions. The lungs appear mildly hyperinflated consistent with underlying COPD. The bones appear intact. IMPRESSION: 1. 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 2. NO ACUTE CHEST PATHOLOGY. JOB NUMBER: [id number] [facility]
--- NOTE | 2017-05-23 09:18 | History & Physical ---
History of Present Illness - Date of Service Date of Service for History & Physical: 05/23/17 - History of Present Illness Admitting Diagnosis: COPD History of Present Illness: 81yo male with CC of shortness of breath. He has history of COPD, uses home O2 at night, CHF, HTN. Patient states that two nights ago he started to have some increase in cough. He says it continued through the night and yesterday morning he started to feel chilled. He says it became more difficult to breath so he decided to have his bring him to the ED. While in the ED, he had a room air O2 sat of 89% upon arrival. He received a duoneb and supplemental O2 and this improved to 92%. He had CXR that showed mild COPD but no acute process. WBC count was within normal. CMP showed kidney function that was actually slightly better than his baseline (24/1.6) and same for his BNP (619.4). His first set of CE returned wnl. No ischemic changes on EKG. Patient was admitted for COPD exacerbation. 05/23/17- Patient states he is feeling much better than yesterday but not quite back to baseline. he is still having cough, although improved. He says he feels as if he has chest congestion but can't seem to get it up. He denies any fevers or chills through the night. He says his SOB is actually improved when he gets up and ambulates a bit. He is up to 97% on room air pcp: Anastacia Travel Screening - Travel/Exposure Within Last 30 Days Have you traveled within the last 30 days?: No - Travel/Exposure Within Last Year Have you traveled outside the [place] in the last year?: No - Additonal Travel Details Have you been exposed to anyone with a communicable illness?: No - Travel Symptoms Symptom Screening: None Review of Systems Constitutional: Denies: Chills, Fever, Malaise, Weakness Eyes: Denies: Eye discharge ENT: Reports: Congestion. Denies: Ear pain, Throat pain Respiratory: Reports: Cough, Dyspnea, Wheezes. Denies: Hemoptysis Cardiovascular: Denies: Chest pain, Palpitations, Syncope Endocrine: Denies: Fatigue, Polydipsia, Polyuria Gastrointestinal: Denies: Abdominal pain, Diarrhea, Nausea, Vomiting Genitourinary: Denies: Dysuria, Frequency, Hematuria Musculoskeletal: Denies: Arthralgia, Back pain, Joint swelling, Myalgia Skin: Denies: Bruising, Change in color, Rash Neurological: Denies: Headache, Numbness, Weakness Psychiatric: Denies: Anxiety Hematological/Lymphatic: Denies: Blood Clots, Easy bleeding, Easy bruising, Swollen glands Past Medical History - SOCIAL HISTORY Smoking Status: Former smoker Alcohol Use: None Drug Use: None - RESPIRATORY Hx Respiratory Disorders: Yes Hx COPD: Yes (home O2- 2L) - CARDIOVASCULAR Hx Cardio Disorders: Yes Hx CHF: Yes Hx Heart Attack: Yes Hx Hypertension: Yes - NEURO Hx Neuro Disorders: No - GI Hx GI Disorders: No - Hx Genitourinary Disorders: No - ENDOCRINE Hx Endocrine Disorders: No - MUSCULOSKELETAL Hx Musculoskeletal Disorders: Yes Hx Arthritis: Yes - PSYCH Hx Psych Problems: No - HEMATOLOGY/ONCOLOGY Hx Hematology/Oncology Disorders: No Family Medical History Any Significant Family History?: No Hx Heart Disease: Father Hx HTN: Mother H&P Meds/Allergies - Allergies Allergies: Allergies Allergy/AdvReac Type Severity Reaction Status Date / Time No Known Drug Allergies Allergy Verified 05/22/17 16:09 - Home Medications Previous Rx's Medication Instructions Recorded Albuterol Sulfate [Proair Hfa] 1 - 2 puff IH .EVERY 4-6 HOURS PRN 07/23/16 #1 inhaler Prednisone [Prednisone 20Mg] 20 mg PO TID #12 tab 04/13/17 - Active Medications Active Medications: Current Medications Acetaminophen (Tylenol 500mg Tab) 500 mg PO Q6H PRN PRN Reason: PAIN/TEMP Albuterol Sulfate () 2.5 mg INH RESP.Q2H PRN PRN Reason: DIFFICULTY IN BREATHING Last Admin: 05/22/17 23:10 Dose: 2.5 mg Albuterol/Ipratropium (Duoneb) 3 ml INH RESP.Q4H.[facility] Last Admin: 05/23/17 09:17 Dose: 3 ml Amlodipine Besylate (Norvasc) 10 mg PO DAILY [facility] Atorvastatin Calcium (Lipitor) 20 mg PO QHS [facility] Last Admin: 05/22/17 22:53 Dose: 20 mg Azithromycin (Zithromax) 500 mg PO DAILY [facility] Carvedilol (Coreg) 25 mg PO BID [facility] Last Admin: 05/22/17 22:53 Dose: 25 mg Enoxaparin Sodium (Lovenox) 40 mg SC DAILY [facility] Ceftriaxone Sodium 1 gm/ (Sodium Chloride) 100 mls @ 200 mls/hr IVPB Q24H [facility] Stop: 05/28/17 18:01 Methylprednisolone Sodium Succinate (Solu-Medrol) 60 mg IVP DAILY [facility] Physical Exam - Vital Signs Vital Signs: Vital Signs - Last 24 Hrs Temp Pulse Pulse Resp BP BP Pulse Ox 05/23/17 07:00 98.1 F 100 H 20 124/67 98 05/23/17 04:08 84 20 05/22/17 23:10 96 H 18 99 05/22/17 23:00 99.0 F 96 H 18 135/69 96 05/22/17 21:00 18 05/22/17 20:10 101 H 18 98 05/22/17 19:01 101 H 20 05/22/17 18:23 99.6 F 108 H 18 146/106 98 - General General Appearance: Alert, Oriented x3, Cooperative, No acute distress Limitations: No limitations - Head Head exam: Atraumatic, Normocephalic, Normal inspection - Eye Eye exam: Normal appearance, PERRL. negative: Conjunctival injection, Scleral icterus - ENT ENT exam: Normal exam, Mucous membranes moist Ear exam: Normal external inspection Nasal Exam: Normal inspection Mouth exam: Normal external inspection Teeth exam: Normal inspection - Neck Neck exam: Normal inspection, Full ROM. negative: Lymphadenopathy, Tenderness - Respiratory Respiratory exam: Decreased breath sounds, Prolonged expiratory, Rhonchi (left lower base). negative: Normal lung sounds bilaterally, Accessory muscle use, Chest wall tenderness, Respiratory distress, Wheezes - Cardiovascular Cardiovascular Exam: Regular rate, Normal rhythm, Normal heart sounds Peripheral Pulses: 2+: Radial (R), Radial (L) - GI/Abdominal GI/Abdominal exam: Soft. negative: Tenderness - Rectal Rectal exam: Deferred - exam: Deferred - Extremities Extremities exam: Normal inspection, Full ROM, Normal capillary refill. negative: Pedal edema, Tenderness - Back Back exam: Reports: Normal inspection. Denies: CVA tenderness (R), CVA tenderness (L) - Neurological Neurological exam: Alert, Oriented X3. negative: Altered - Psychiatric Psychiatric exam: Normal affect, Normal mood - Skin Skin exam: Dry, Intact, Normal color, Warm Results - Labs Result Diagrams: 05/23/17 07:58 05/23/17 07:58 Labs Last 24 Hours: Laboratory Results - last 24 hr 05/22/17 05/22/17 05/23/17 20:00 23:50 04:00 Troponin T Cancelled < 0.010 Cancelled 05/23/17 07:58 Troponin T < 0.010 - Imaging and Cardiology Chest x-ray Status: Report reviewed (mild COPD; NAP) VTE H&P Assessment - Risk for VTE Risk for VTE: Yes Risk Level: High Risk Assessment Date: 05/23/17 Risk Assessment Time: 16:43 VTE Orders Placed or Will Be Placed: Yes Plan - Inpatient Certification Inpatient Certification: Admit to inpatient care: Based on my medical assessment, after consideration of patient's risk factors (age, co-morbidities and patient presenting symptoms and acuity), I expect that this patient will remain in the hospital greater than or equal to two midnights and that the services needed warrant inpatient care because: Patient Risk Factors: [age, COPD exacerbation, hypoxia] Estimated length of stay: [48-72h] The patient may reasonably be expected to be discharged or transferred to a hospital within 96 hours after admission to [facility]. Services needed: [IV antibiotics, IV steroids, respiratory therapy ] Post hospital care (if known): [] I certify that my determination is in accordance with my understanding of Medicare requirements for reasonable and necessary inpatient services. 05/23/17 16:43 - Detailed Diagnosis and Plan (1) COPD exacerbation Current Visit: Yes Status: Acute Base Code: J44.1 - CHRONIC OBSTRUCTIVE PULMONARY DISEASE W (ACUTE) EXACERBATION Comment: 05/23/17- Improved. O2 sat is up to 97% on RA from 89%. CXR showed no acute process. CE were negative x3. no ST changes on EKG. WBC count remains wnl and patient is afrebrile -continue azithro 500mg po daily and rocephin 1gm iv q24H -continue solumedrol 60mg IV daily -continue duoneb q4H prn -add mucinex 600mg po bid -vitals q8H -repeat labs qam (2) Full code status Current Visit: Yes Status: Acute Base Code: Z78.9 - OTHER SPECIFIED HEALTH STATUS Comment: 05/23/17- patient is full code (3) DVT prophylaxis Current Visit: Yes Status: Acute Base Code: [id number] - Comment: 05/23/17- patient is high risk with age and restricted mobility -lovenox 40mg sq daily which is renally dosed
[2017-05-23 09:21] LABS: HEMOGLOBIN 11.9 gm/dl (14.0-18.0); LYMPH % 6.3 % (16-45); MEAN CELL VOLUME 90.2 fl (81-97); MEAN CORPUSCULAR HGB CONC 32.2 g/dl (32-36); MEAN PLATELET VOLUME 9.8 fl (7.4-10.4); MONO % 2.9 % (0-9); PLATELET COUNT 227 K/uL (130-400); RED CELL DISTRIBUTION WIDTH 13.4 % (11.5-14.5); WHITE BLOOD COUNT W/O DIFF 8.2 K/uL (4.2-12.2)
[2017-05-23 09:23] LABS: BILIRUBIN,TOTAL 0.2 mg/dL (0.2-1.0); CREATININE 1.8 mg/dL (0.7-1.2)
[2017-05-23 09:24] LABS: TOTAL PROTEIN 7.2 g/dL (6.6-8.7)
[2017-05-23 09:29] LABS: ALB/GLOB RATIO 1.1 (1.1-1.8); ALBUMIN 3.7 g/dL (4.0-5.0)
[2017-05-23 09:42] LABS: PLATELET ESTIMATE NORMAL (NORMAL)
[2017-05-23] MEDS: ENOXAPARIN 40 MG/0.4 ML SYR SC SCH (09:53)
[2017-05-23] MEDS: CARVEDILOL 12.5 MG TABLET PO SCH ×2 (09:55→21:12)
[2017-05-23] MEDS: AZITHROMYCIN 500 MG TABLET PO SCH (09:55)
[2017-05-23] MEDS: METHYLPREDNISOLONE PF 125MG/VIAL IVP SCH (09:56)
[2017-05-23] MEDS: AMLODIPINE BESYLATE 5MG TAB PO SCH (09:56)
[2017-05-23] MEDS ORDERED: CEFTRIAXONE SODIUM 1 GM in 0.9 % SODIUM CHLORIDE 100ML 100 ML IVPB SCH (18:00)
[2017-05-23] MEDS: ATORVASTATIN 20 MG TABLET PO SCH (21:12)
[2017-05-23] MEDS: GUAIFENESIN 600 MG TABCR PO SCH (21:13)
[2017-05-24] MEDS: IPRATROPIUM/ALBUTEROL (0.5MG/3MG) NEB INH SCH ×3 (02:52→10:21)
[2017-05-24 06:59] LABS: HEMATOCRIT 35.6 % (42.0-52.0); LYMPH % 3.6 % (16-45); MEAN CELL VOLUME 89.9 fl (81-97); MEAN CORPUSCULAR HGB CONC 30.9 g/dl (32-36); MEAN PLATELET VOLUME 9.8 fl (7.4-10.4); MONO % 5.4 % (0-9); PLATELET COUNT 214 K/uL (130-400); RED BLOOD COUNT 3.96 M/uL (4.40-5.70); RED CELL DISTRIBUTION WIDTH 13.4 % (11.5-14.5); WHITE BLOOD COUNT W/O DIFF 14.5 K/uL (4.2-12.2)
[2017-05-24 07:15] LABS: MEAN CORPUSCULAR HEMOGLOBIN 27.7 pg (27-33)
[2017-05-24 07:28] LABS: ALB/GLOB RATIO 1.1 (1.1-1.8); ALBUMIN 3.7 g/dL (4.0-5.0); BILIRUBIN,TOTAL 0.2 mg/dL (0.2-1.0); CREATININE 1.8 mg/dL (0.7-1.2); TOTAL PROTEIN 7.2 g/dL (6.6-8.7)
--- NOTE | 2017-05-24 07:41 | Discharge Summary ---
Providers Discharge Summary Date: 05/24/17 Date of admission: 05/22/17 18:20 Expected Date of Discharge: 05/24/17 Attending physician: Sinan Virgen Primary care physician: Dung Galaviz Physical Exam - Vital Signs Vital Signs: Vital Signs - Last 24 Hrs Temp Pulse Pulse Resp BP Pulse Ox 05/24/17 06:57 97.8 F 94 H 20 154/81 95 05/24/17 06:12 96 H 18 96 05/24/17 02:52 88 18 05/23/17 21:43 90 16 95 05/23/17 21:00 16 05/23/17 20:41 98.1 F 90 20 143/71 93 L 05/23/17 18:00 91 H 16 100 05/23/17 15:00 98.6 F 94 H 18 145/86 95 05/23/17 13:50 89 17 98 05/23/17 13:35 91 H 17 100 05/23/17 09:40 93 H 19 99 - General General Appearance: Alert, Oriented x3, Cooperative, No acute distress Limitations: No limitations - Head Head exam: Atraumatic, Normocephalic, Normal inspection - Eye Eye exam: Normal appearance, PERRL. negative: Conjunctival injection, Scleral icterus - ENT ENT exam: Normal exam, Mucous membranes moist Ear exam: Normal external inspection Nasal Exam: Normal inspection Mouth exam: Normal external inspection Teeth exam: Normal inspection - Neck Neck exam: Normal inspection, Full ROM. negative: Lymphadenopathy, Tenderness - Respiratory Respiratory exam: Decreased breath sounds, Prolonged expiratory, Wheezes (few expiratory wheezes). negative: Normal lung sounds bilaterally, Accessory muscle use, Chest wall tenderness, Respiratory distress, Rhonchi - Cardiovascular Cardiovascular Exam: Regular rate, Normal rhythm, Normal heart sounds Peripheral Pulses: 2+: Radial (R), Radial (L) - GI/Abdominal GI/Abdominal exam: Soft. negative: Tenderness - Rectal Rectal exam: Deferred - exam: Deferred - Extremities Extremities exam: Normal inspection, Full ROM, Normal capillary refill. negative: Pedal edema, Tenderness - Back Back exam: Reports: Normal inspection. Denies: CVA tenderness (R), CVA tenderness (L) - Neurological Neurological exam: Alert, Oriented X3. negative: Altered - Psychiatric Psychiatric exam: Normal affect, Normal mood - Skin Skin exam: Dry, Intact, Normal color, Warm Hospitalization - Hospitalization Admission Diagnosis: COPD - Problem List/Discharge Diagnosis (1) COPD exacerbation Current Visit: Yes Status: Acute Base Code: J44.1 - CHRONIC OBSTRUCTIVE PULMONARY DISEASE W (ACUTE) EXACERBATION Comment: 05/24/17- continues to improve. O2 sat is up to 97% on RA from 89%. CXR showed no acute process. CE were negative x3. no ST changes on EKG. WBC count up to 14.5 today, however, he has received solumedrol the past 2 days now. He remains afebrile. He did not qualify for oxygen during the day. -plan to discharge home today and follow up with Dr. Galaviz in 7-10 days -continue azithromycin 250mg po daily for next 3 days starting tomorrow and transition to cefdinir 300mg po bid for 8 more days, total of 10 day course. -transition to prednisone taper starting tomorrow -may use mucinex 600mg po bid as needed for chest congestion -may use albuterol inhaler q4H as needed at home. Patient given new space chamber. -continue home O2 at bedtime (2) Full code status Current Visit: Yes Status: Acute Base Code: Z78.9 - OTHER SPECIFIED HEALTH STATUS Comment: 05/24/17- patient is full code (3) DVT prophylaxis Current Visit: Yes Status: Acute Base Code: [id number] - Comment: 05/24/17- patient is high risk with age and restricted mobility -lovenox 40mg sq daily which is renally dosed - Hospitalization Course Disposition: Home, Self-Care Hospital Course: 81yo male with CC of shortness of breath. He has history of COPD, uses home O2 at night, CHF, HTN. Patient states that two nights ago he started to have some increase in cough. He says it continued through the night and yesterday morning he started to feel chilled. He says it became more difficult to breath so he decided to have his bring him to the ED. While in the ED, he had a room air O2 sat of 89% upon arrival. He received a duoneb and supplemental O2 and this improved to 92%. He had CXR that showed mild COPD but no acute process. WBC count was within normal. CMP showed kidney function that was actually slightly better than his baseline (241.6) and same for his BNP (619.4). His first set of CE returned wnl. No ischemic changes on EKG. Patient was admitted for COPD exacerbation. 05/23/17- Patient states he is feeling much better than yesterday but not quite back to baseline. he is still having cough, although improved. He says he feels as if he has chest congestion but can't seem to get it up. He denies any fevers or chills through the night. He says his SOB is actually improved when he gets up and ambulates a bit. He is up to 97% on room air 05/24/17- Patient states he continues to feel better. He says he is much better than when he came in. He did feel a little short of breath this morning but once he sat up and coughed felt better. He denies chest pain, palpitations, fevers, chills. He did not qualify for supplemental oxygen during the day with O2 sat 95% at rest and with activity. He will continue to use his home o2 at bedtime. pcp: Anastacia Abnormal Labs: Abnormal Lab Results 05/23/17 05/23/17 05/24/17 Range/Units 07:58 07:58 06:15 WBC 14.5 H (4.2-12.2) K/uL RBC 4.10 L 3.96 L (4.40-5.70) M/uL Hgb 11.9 L 11.0 L (14.0-18.0) gm/dl Hct 37.0 L 35.6 L (42.0-52.0) % MCHC 30.9 L (32-36) g/dl Neutrophils % 89.0 H (47-80) % Lymphocytes % 6.3 L 3.6 L (16-45) % Lymphocytes 8.0 L (16-45) % Potassium 4.9 H (3.4-4.5) mmol/L BUN 26 H (8-23) mg/dL Creatinine 1.8 H (0.7-1.2) mg/dL Random Glucose 136 H (74-109) mg/dL Albumin 3.7 L (4.0-5.0) g/dL 05/24/17 Range/Units 06:15 WBC (4.2-12.2) K/uL RBC (4.40-5.70) M/uL Hgb (14.0-18.0) gm/dl Hct (42.0-52.0) % MCHC (32-36) g/dl Neutrophils % (47-80) % Lymphocytes % (16-45) % Lymphocytes (16-45) % Potassium 4.7 H (3.4-4.5) mmol/L BUN 35 H (8-23) mg/dL Creatinine 1.8 H (0.7-1.2) mg/dL Random Glucose 118 H (74-109) mg/dL Albumin 3.7 L (4.0-5.0) g/dL Condition at Discharge: (2) Stable Discharge Medications - Discharge Medications Prescriptions: Azithromycin 250 mg PO DAILY #3 tablet Cefdinir 300 mg PO BID #16 capsule Prednisone [Prednisone 10Mg] 10 mg PO ASDIR #30 tab Home Medications: Ambulatory Orders Atorvastatin Calcium [Lipitor] 20 mg PO QHS 05/11/14 [Last Taken 05/21/17] Amlodipine Besylate [Norvasc] 10 mg PO DAILY 07/20/16 [Last Taken 05/22/17] Carvedilol 25 mg PO BID 07/21/16 [Last Taken 05/22/17] Albuterol Sulfate [Proair Hfa] 1 - 2 puff IH .EVERY 4-6 HOURS PRN #1 inhaler [Last Taken 05/22/17] Azithromycin 250 mg PO DAILY #3 tablet 05/23/17 [Last Taken Unknown] Cefdinir 300 mg PO BID #16 capsule 05/23/17 [Last Taken Unknown] Prednisone [Prednisone 10Mg] 10 mg PO ASDIR #30 tab 05/23/17 [Last Taken Unknown ] Discharge Plan - Discharge Instructions Activity at Discharge: Wear Oxygen At Night Diet at Discharge: Regular Diet Additional Instructions: Follow up with Dr. Galaviz in 7-10 days Continue your azithromycin 250mg by mouth for 3 more days starting tomorrow in the morning continue your cefdinir 300mg by mouth twice daily for 8 more days. Take your first dose of this tonight Start your prednisone taper tomorrow morning. May take mucinex 600mg by mouth twice daily as needed for chest congestion Continue to wear your oxygen at night Continue to use your albuterol inhaler every 4 hours as needed for shortness of breath Please call with any questions or concerns Return to ED for any new or worsening symptoms Quality Measures - Quality Measures Quality Measures: Advance Directives, Documentation of Current Medications in Medical Record, Elder Maltreatment Screen and Follow-Up Plan, Screening for High Blood Pressure and F/U Documented - Current Medications Quality Measure: Measure #130: Documentation of Current Medications Documentation of Current Medications: <Current Medications Documented/Reviewed> [[id number]] - Blood Pressure Screening Quality Measure: Screening for High Blood Pressure and Follow-Up Documented Does Patient Have Any of the Following: Active Dx of HTN Blood Pressure Classification: Pre-Hypertensive BP Reading Systolic Measurement: 136 Diastolic Measurement: 70 Screening for High Blood Pressure: Patient Exclusion, Hx of HTN [G9744] - Advance Directives Quality Measure: Measure #47: Care Plan Advance Directives Established: No Advance Directives Information Provided To Patient: Yes Advance Directives on File: No Power of Retail [employer] Pro: Yes Power of Retail [employer] Pro Name: [employer]. Advance Care Planning: <Care Plan/Decision Maker Documented; Discussed & Documented> [[id number]] - Elder Abuse Suspicion Index Screening: Elder Abuse Suspicion Index Screening Rely on people for bathing, dressing, shopping, banking, etc: No Prevented from getting food, clothes, medication, etc: No Made to feel shamed or threatened by someone: No Forced to sign papers or use money against will: No Feel afraid, touched in ways not wanted or hurt physically: No Poor eye contact, withdrawn, malnourished, cuts or bruises: No Screening Result: Negative result EASI Reference Information: Brett VEGAS, Olivia C, Kush D, Nito Mcbride.Development and validation of a tool to assist physicians identification of elder abuse: The Elder Abuse Suspicion Index (EASI ). Journal of Elder Abuse and Neglect, 2008; 20 (3): 276-300. - Elder Maltreatment Screen Quality Measures: Elder Maltreatment Screen and Follow-Up Plan Elder Maltreatment Screen: <Negative, No Follow-Up Plan Required> [H6686]
[2017-05-24] MEDS: ENOXAPARIN 40 MG/0.4 ML SYR SC SCH (10:39)
[2017-05-24] MEDS: AMLODIPINE BESYLATE 5MG TAB PO SCH (10:40)
[2017-05-24] MEDS: GUAIFENESIN 600 MG TABCR PO SCH (10:40)
[2017-05-24] MEDS: AZITHROMYCIN 500 MG TABLET PO SCH (10:40)
[2017-05-24] MEDS: METHYLPREDNISOLONE PF 125MG/VIAL IVP SCH (10:40)
[2017-05-24] MEDS: CARVEDILOL 12.5 MG TABLET PO SCH (10:41)
== END 2017-05-24 12:00 | disposition home or self-care (01) | DRG 192 ==
LOC: ER 16:01 → MEDSURG 18:20
PROVIDERS: ADMIT Internal Medicine; ATTEND Internal Medicine
DX: J44.1 Chronic obstructive pulmonary disease with (acute) exacerbation (principal); R05 Cough; I50.9 Heart failure, unspecified; I10 Essential (primary) hypertension; Z87.891 Personal history of nicotine dependence; I25.10 Atherosclerotic heart disease of native coronary artery without angina pectoris; Z78.9 Other specified health status
CPT/HCPCS: 71020; 80053; 83880; 84484; 85027; 85610; 85730; 93041; 94640; 94761; 96375; 99223; 99239; 99285; J1650; J2930; J7613

== ENCOUNTER 2018-02-25 18:30 | Observation (INO) | payer MEDICARE ==
--- NOTE | 2018-02-25 19:00 | Emergency Department Record ---
History of Present Illness - General Chief Complaint: Back Pain/Injury Stated Complaint: LOWER BACK PAIN/LT SIDE Time Seen by Provider: 02/25/18 18:31 Source: Patient Mode of Arrival: Ambulatory Limitations: No limitations - History of Present Illness Initial Comments: 82 yo male presents to ED for evaluation of left sided flank pain symptoms that began 2 weeks ago, patient reports that he is currently being treated for a kidney infection. Patient reports nausea/vomiting symptoms that began this evening, denies fevers, chills, or dysuria/hematuria symptoms. Patient reports history of aortic repair. MD Complaint: Back pain Onset/Timin -: Week(s) Radiation: Flank Severity: Mild Severity scale (1-10): 3 Consistency: Constant Improves With: None Worsens With: None Context: Unknown Associated Symptoms: Nausea/vomiting - Related Data Previous Rx's Medication Instructions Recorded Albuterol Sulfate [Proair Hfa] 1 - 2 puff IH .EVERY 4-6 HOURS PRN 07/23/16 #1 inhaler Prednisone [Prednisone 10Mg] 10 mg PO ASDIR #30 tab 05/23/17 Allergies Allergy/AdvReac Type Severity Reaction Status Date / Time No Known Drug Allergies Allergy Verified 02/25/18 18:45 Travel Screening - Travel/Exposure Within Last 30 Days Have you traveled within the last 30 days?: No Review of Systems Constitutional: Denies: Chills, Fever, Malaise, Night sweats Eyes: Denies: Eye discharge, Eye pain ENT: Denies: Congestion, Ear pain, Epistaxis Respiratory: Denies: Cough, Dyspnea Cardiovascular: Denies: Chest pain, Dyspnea on exertion Endocrine: Denies: Fatigue, Heat or cold intolerance Gastrointestinal: Reports: Nausea, Vomiting. Denies: Abdominal pain Genitourinary: Denies: Retention, Testicular pain, Testicular mass Musculoskeletal: Reports: Back pain (left sided flank pain). Denies: Arthralgia , Gout Skin: Denies: Bruising, Change in color Neurological: Denies: Abnormal gait, Confusion, Headache, Tingling Psychiatric: Denies: Anxiety Hematological/Lymphatic: Denies: Anemia, Blood Clots Past Medical History - SOCIAL HISTORY Smoking Status: Former smoker Alcohol Use: None Drug Use: None - RESPIRATORY Hx Respiratory Disorders: Yes Hx COPD: Yes (home O2- 2L) - CARDIOVASCULAR Hx Cardio Disorders: Yes Hx CHF: Yes Hx Heart Attack: Yes Hx Hypertension: Yes - NEURO Hx Neuro Disorders: No - GI Hx GI Disorders: No - Hx Genitourinary Disorders: Yes Comment:: kidney/bladder infections - ENDOCRINE Hx Endocrine Disorders: No - MUSCULOSKELETAL Hx Musculoskeletal Disorders: Yes Hx Arthritis: Yes - PSYCH Hx Psych Problems: No - HEMATOLOGY/ONCOLOGY Hx Hematology/Oncology Disorders: No Family Medical History Any Significant Family History?: Yes Hx Heart Disease: Father Hx HTN: Mother Physical Exam - General General Appearance: Alert, Oriented x3, Cooperative, Mild distress, Other ( ambulates with steady gait, does not appear to be in sever pain.) Limitations: No limitations - Head Head exam: Atraumatic, Normocephalic, Normal inspection Head exam detail: negative: Abrasion, Contusion, Anton's sign, General tenderness, Hematoma, Laceration - Eye Eye exam: Normal appearance. negative: Conjunctival injection, Periorbital swelling, Periorbital tenderness, Scleral icterus - ENT Ear exam: negative: Auricular hematoma, Auricular trauma Nasal Exam: negative: Active bleeding, Discharge, Dried blood, Foreign body Mouth exam: negative: Drooling, Laceration, Muffled voice, Tongue elevation - Neck Neck exam: Normal inspection. negative: Meningismus, Tenderness - Respiratory Respiratory exam: Normal lung sounds bilaterally. negative: Respiratory distress, Rhonchi, Stridor, Wheezes - Cardiovascular Cardiovascular Exam: Regular rate, Normal rhythm, Normal heart sounds - GI/Abdominal GI/Abdominal exam: Soft. negative: Rebound, Rigid, Tenderness - Rectal Rectal exam: Deferred - exam: Deferred - Extremities Extremities exam: Normal inspection. negative: Calf tenderness, Pedal edema, Tenderness - Back Back exam: Reports: CVA tenderness (L). Denies: CVA tenderness (R) - Neurological Neurological exam: Alert, Normal gait, Oriented X3 - Psychiatric Psychiatric exam: Normal affect, Normal mood - Skin Skin exam: Normal color. negative: Abrasion Type of lesion: negative: abrasion Course Vital Signs 02/25/18 18:38 Temperature 97.5 F L Pulse Rate 69 Respiratory 18 Rate Blood Pressure 119/62 Pulse Ox 99 - Reevaluation(s) Reevaluation #1: 02/25/18 19:57 Laboratory studies were reviewed: BUN 47/Creatinine 3.3, GFR 19 Hgb 10.9 Potassium 5.6 Reevaluation #2: 02/25/18 20:06 CT Abdomen and Pelvis w/o contrast: Interval aortic graft placement Small fat-containing hernia No acute process Reevaluation #3: 02/25/18 20:22 EKG: NSR 69 IVCD (145 ms vs 112 previous) LAD No Sgarbossa criteria present. Insuling, D50, and Kayexelate ordered in ED. Case was discussed with Dr. Paul, will accept admission at this time. Medical Decision Making - Lab Data Result diagrams: 02/25/18 19:15 02/25/18 19:15 Disposition Disposition: Admit Clinical Impression: Hyperkalemia, Flank pain ARF (acute renal failure) Qualifiers: Acute renal failure type: unspecified Qualified Code(s): N17.9 - Acute kidney failure, unspecified Anemia Qualifiers: Anemia type: other cause Other causes of anemia: other cause, not classified Qualified Code(s): D64.89 - Other specified anemias Disposition: Still a Patient at [facility] Decision to Admit: Admit from ER Decision to Admit Date: 02/25/18 Decision to Admit Time: 20:32 Condition: (2) Stable Forms: Patient Portal Access Time of Disposition: 20:32 Quality - Quality Measures Quality Measures: N/A - Blood Pressure Screening Does Patient Have Any of the Following: No Blood Pressure Classification: Normal BP Reading Systolic Measurement: 119 Diastolic Measurement: 62 Screening for High Blood Pressure: < Normal BP, F/U Not Required > [G8783]
[2018-02-25 19:12] LABS: URINE APPEARANCE CLEAR; URINE BILIRUBIN NEGATIVE (NEGATIVE); URINE BLOOD NEGATIVE (NEGATIVE); URINE COLOR YELLOW; URINE GLUCOSE (UA) NEGATIVE (NEGATIVE); URINE KETONE NEGATIVE (NEGATIVE); URINE LEUKOCYTE ESTERASE NEGATIVE (NEGATIVE); URINE NITRITE NEGATIVE (NEGATIVE); URINE PROTEIN NEGATIVE (NEGATIVE); URINE UROBILINOGEN 0.2 E.U./dL (0.20 - 1.00)
[2018-02-25 19:22] LABS: BASO % 0.3 % (0-6); EOS % 3.2 % (0-6); GRAN % 71.2 % (47-80); HEMATOCRIT 36.4 % (42.0-52.0); HEMOGLOBIN 10.9 gm/dl (14.0-18.0); LYMPH % 17.3 % (16-45); MEAN CELL VOLUME 90.5 fl (81-97); MEAN CORPUSCULAR HEMOGLOBIN 27.1 pg (27-33); MEAN CORPUSCULAR HGB CONC 29.9 g/dl (32-36); MEAN PLATELET VOLUME 8.6 fl (7.4-10.4); PLATELET COUNT 322 K/uL (130-400); RED BLOOD COUNT 4.02 M/uL (4.40-5.70); RED CELL DISTRIBUTION WIDTH 14.3 % (11.5-14.5); WHITE BLOOD COUNT W/O DIFF 6.6 K/uL (4.2-12.2)
[2018-02-25 19:36] LABS: BILIRUBIN,TOTAL 0.2 mg/dL (0.2-1.0); CREATININE 3.3 mg/dL (0.7-1.2); TOTAL PROTEIN 7.8 g/dL (6.6-8.7)
[2018-02-25 19:41] LABS: ALB/GLOB RATIO 1.2 (1.1-1.8); ALBUMIN 4.3 g/dL (4.0-5.0)
[2018-02-25] MEDS ORDERED: SPS 15 GM/60 ML PO ONE (20:27)
[2018-02-25] MEDS ORDERED: DEXTROSE 50 % IVP 50 ML DISP.SYRIN IVP ONE (20:27)
[2018-02-25] MEDS ORDERED: HUMULIN R 100 UNIT/ML VIAL IV ONE (20:27)
[2018-02-25] MEDS ORDERED: 0.9 % SODIUM CHLORIDE 1000ML 1,000 ML IV PRN (21:40)
[2018-02-25] MEDS ORDERED: ACETAMINOPHEN 500 MG TABLET PO PRN (21:40)
[2018-02-25] MEDS ORDERED: ALBUTEROL HFA 8 GM INHALER INH PRN (21:40)
[2018-02-25] MEDS ORDERED: ATORVASTATIN 20 MG TABLET PO SCH (22:00)
[2018-02-25] MEDS: CARVEDILOL 12.5 MG TABLET PO SCH (22:24)
--- NOTE | 2018-02-26 07:46 | CT SCAN REPORT ---
EXAM: NONCONTRAST CT OF THE ABDOMEN AND PELVIS HISTORY: LEFT FLANK PAIN. TECHNIQUE: Noncontrast CT of the abdomen and pelvis was obtained. Comparison: CTA of the abdomen and pelvis 01/19/11. FINDINGS: Mild scattered bibasilar atelectasis. Unremarkable noncontrast appearance of the liver, gallbladder, spleen, adrenal glands, and pancreas. No hydronephrosis. No intrarenal, ureteral or bladder calculi detected. The stomach and small bowel are nondilated. Noninflamed appendix. Moderate stool in the cecum and ascending colon. No focal colonic thickening or inflammatory changes seen. No mesenteric adenopathy. No free air or free fluid in the abdomen or pelvis. There is a 2.3 cm heterogeneous exophytic lesion arising from the left renal cortex corresponding to a mildly complex cyst on 2011 comparison, unchanged in size. Aortoiliac aneurysmal dilation with interval stent graft placement. Overall the vessel caliber is not definite changed from 2011 study on this noncontrast evaluation. No definite acute osseous findings. Multilevel lumbar spine degenerative changes. Bilateral hip joint osteoarthrosis. IMPRESSION: 1. NO DEFINITE ACUTE ABDOMINAL AND PELVIC FINDINGS. NO EVIDENCE OF HYDRONEPHROSIS OR UROLITHIASIS. 2. 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 3. HETEROGENEOUS LEFT RENAL CORTICAL CYSTIC LESION WHICH APPEARS STABLE IN SIZE FROM 2011 COMPARISON. 4. NOT DESCRIBED ABOVE, THERE IS A SMALL FAT CONTAINING RIGHT INGUINAL HERNIA WHICH APPEARS SLIGHTLY INCREASED IN SIZE FROM 2011. JOB NUMBER: [id number] MTDD
[2018-02-26] MEDS: CARVEDILOL 12.5 MG TABLET PO SCH (09:21)
--- NOTE | 2018-02-26 09:53 | History & Physical ---
History of Present Illness - Date of Service Date of Service for History & Physical: 02/26/18 - History of Present Illness Admitting Diagnosis: ARF. Hyperkalemia. Anemia. Flank pain History of Present Illness: Mr. Hanson is a 82 y/o male with presentation of left lower back pain nausea and abdominal discomfort yesterday afternoon. The patient was seen at [facility] ED about two weeks ago where he was reportedly diagnosed with a "kidney infection" and started on a two week course of antibiotics. He says that his symptoms improved on the antibiotics and he took the last antibiotic about one day ago. The patient denies any urinary symptoms of pain, bleeding, itching or change in urine stream. He has medical history of chronic atrial fibrillation, hypertension and COPD. On arrival to [facility] ED the patient;s labs showed hyperkalemia and elevated creatinine at 3.3 but no baseline creatinine of note. The patients non-contrast abdominal CT was negative for any acute abdominal/pelvic findings and no hydronephrosis or renal stones noted. He was administered 1 amp D50, 10 units insulin glargine and kayexalate overnight. Vital signs on admission: BP: 119/62 HR: 69 RR: 18 T: 97.5 Sats: 99% RA PCP: Dr. Dung Galaviz Travel Screening - Travel/Exposure Within Last 30 Days Have you traveled within the last 30 days?: No - Travel/Exposure Within Last Year Have you traveled outside the [place] in the last year?: No - Additonal Travel Details Have you been exposed to anyone with a communicable illness?: No - Travel Symptoms Symptom Screening: None Review of Systems Constitutional: Denies: Chills, Fever, Malaise, Night sweats Eyes: Denies: Eye discharge, Eye pain ENT: Denies: Congestion, Ear pain, Epistaxis Respiratory: Denies: Cough, Dyspnea Cardiovascular: Denies: Chest pain, Dyspnea on exertion Endocrine: Denies: Fatigue, Heat or cold intolerance Gastrointestinal: Reports: Nausea, Vomiting. Denies: Abdominal pain Genitourinary: Denies: Retention, Testicular pain, Testicular mass Musculoskeletal: Reports: Back pain (left sided flank pain). Denies: Arthralgia , Gout Skin: Denies: Bruising, Change in color Neurological: Denies: Abnormal gait, Confusion, Headache, Tingling Psychiatric: Denies: Anxiety Hematological/Lymphatic: Denies: Anemia, Blood Clots Past Medical History - SOCIAL HISTORY Smoking Status: Former smoker Alcohol Use: None Drug Use: None - RESPIRATORY Hx Respiratory Disorders: Yes Hx COPD: Yes (home O2- 2L) Comment:: only when he needs it - CARDIOVASCULAR Hx Cardio Disorders: Yes Hx CHF: Yes Hx Heart Attack: Yes Hx Hypertension: Yes - NEURO Hx Neuro Disorders: No - GI Hx GI Disorders: No - Hx Genitourinary Disorders: Yes Comment:: kidney/bladder infections - ENDOCRINE Hx Endocrine Disorders: No - MUSCULOSKELETAL Hx Musculoskeletal Disorders: Yes Hx Arthritis: Yes - PSYCH Hx Psych Problems: No - HEMATOLOGY/ONCOLOGY Hx Hematology/Oncology Disorders: No Family Medical History Any Significant Family History?: Yes Hx Heart Disease: Father Hx HTN: Mother H&P Meds/Allergies - Allergies Allergies: Allergies Allergy/AdvReac Type Severity Reaction Status Date / Time No Known Drug Allergies Allergy Verified 02/25/18 18:45 - Home Medications Previous Rx's Medication Instructions Recorded Albuterol Sulfate [Proair Hfa] 1 - 2 puff IH .EVERY 4-6 HOURS PRN 07/23/16 #1 inhaler Prednisone [Prednisone 10Mg] 10 mg PO ASDIR #30 tab 05/23/17 - Active Medications Active Medications: Current Medications Acetaminophen (Tylenol 500mg Tab) 1,000 mg PO Q6H PRN PRN Reason: PAIN - MILD(1-4)/FEVER Albuterol Sulfate (Ventolin Hfa) 1 - 2 puff INH .EVERY 4-6 HOURS PRN PRN Reason: DIFFICULTY IN BREATHING Amlodipine Besylate (Norvasc) 10 mg PO DAILY [facility] Last Admin: 02/26/18 09:20 Dose: 10 mg Atorvastatin Calcium (Lipitor) 20 mg PO QHS [facility] Last Admin: 02/25/18 22:24 Dose: 20 mg Carvedilol (Coreg) 25 mg PO BID [facility] Last Admin: 02/26/18 09:21 Dose: 25 mg Sodium Chloride () 1,000 mls @ 125 mls/hr IV .Q8H PRN PRN Reason: LARGE VOLUME IV Last Admin: 02/26/18 04:23 Dose: 125 mls/hr Physical Exam - Vital Signs Vital Signs: Vital Signs - Last 24 Hrs Temp Pulse Pulse Resp BP BP Pulse Ox 02/25/18 22:18 74 18 02/25/18 21:30 97.7 F 83 18 155/78 95 02/25/18 21:15 70 140/101 02/25/18 20:56 72 20 145/86 100 02/25/18 20:03 64 20 128/66 100 02/25/18 19:42 97.9 F 65 18 118/63 99 02/25/18 18:38 97.5 F L 69 18 119/62 99 - General General Appearance: Alert, Oriented x3, Cooperative, Mild distress, Other ( ambulates with steady gait, does not appear to be in sever pain.) Limitations: No limitations - Head Head exam: Atraumatic, Normocephalic, Normal inspection Head exam detail: negative: Abrasion, Contusion, Anton's sign, General tenderness, Hematoma, Laceration - Eye Eye exam: Normal appearance. negative: Conjunctival injection, Periorbital swelling, Periorbital tenderness, Scleral icterus - ENT Ear exam: negative: Auricular hematoma, Auricular trauma Nasal Exam: negative: Active bleeding, Discharge, Dried blood, Foreign body Mouth exam: negative: Drooling, Laceration, Muffled voice, Tongue elevation - Neck Neck exam: Normal inspection. negative: Meningismus, Tenderness - Respiratory Respiratory exam: Normal lung sounds bilaterally. negative: Respiratory distress, Rhonchi, Stridor, Wheezes - Cardiovascular Cardiovascular Exam: Regular rate, Normal rhythm, Normal heart sounds Peripheral Pulses: 3+: Radial (R), Radial (L), Dorsalis Pedis (R), Dorsalis Pedis (L) - GI/Abdominal GI/Abdominal exam: Soft. negative: Hyperactive bowel sounds, Rebound, Rigid, Tenderness - Rectal Rectal exam: Deferred - exam: Deferred - Extremities Extremities exam: Normal inspection. negative: Calf tenderness, Pedal edema, Tenderness - Back Back exam: Reports: CVA tenderness (L). Denies: CVA tenderness (R) - Neurological Neurological exam: Alert, Normal gait, Oriented X3 - Psychiatric Psychiatric exam: Normal affect, Normal mood - Skin Skin exam: Normal color. negative: Abrasion Type of lesion: negative: abrasion Results - Labs Result Diagrams: 02/25/18 19:15 02/26/18 06:20 Labs Last 24 Hours: Laboratory Results - last 24 hr 02/25/18 02/25/18 02/25/18 19:10 19:15 19:15 WBC 6.6 RBC 4.02 L Hgb 10.9 L Hct 36.4 L MCV 90.5 MCH 27.1 MCHC 29.9 L RDW 14.3 Plt Count 322 MPV 8.6 Gran % 71.2 Lymphocytes % 17.3 Monocytes % 8.0 Eosinophils % 3.2 Basophils % 0.3 Sodium 134 L Potassium 5.6 H Chloride 95 L Carbon Dioxide 23.0 Anion Gap 16.0 BUN 47 H Creatinine 3.3 H Estimated GFR 19 POC Glucose Random Glucose 102 Calcium 9.4 Total Bilirubin 0.20 AST 20 ALT 11 Alkaline Phosphatase 78 Total Protein 7.8 Albumin 4.3 Globulin 3.5 Albumin/Globulin Ratio 1.2 Urine Color Yellow Urine Appearance Clear Urine pH 5.0 Ur Specific [place] >= 1.030 Urine Protein Negative Urine Glucose (UA) Negative Urine Ketones Negative Urine Blood Negative Urine Nitrite Negative Urine Bilirubin Negative Urine Urobilinogen 0.2 Ur Leukocyte Esterase Negative 02/25/18 02/26/18 21:38 06:20 WBC RBC Hgb Hct MCV MCH MCHC RDW Plt Count MPV Gran % Lymphocytes % Monocytes % Eosinophils % Basophils % Sodium 139 Potassium 4.6 H Chloride 100 Carbon Dioxide 23.0 Anion Gap 16.0 BUN 41 H Creatinine 3.0 H Estimated GFR 21 POC Glucose 147 H Random Glucose 88 Calcium 8.9 Total Bilirubin AST ALT Alkaline Phosphatase Total Protein Albumin Globulin Albumin/Globulin Ratio Urine Color Urine Appearance Urine pH Ur Specific [place] Urine Protein Urine Glucose (UA) Urine Ketones Urine Blood Urine Nitrite Urine Bilirubin Urine Urobilinogen Ur Leukocyte Esterase VTE H&P Assessment - Risk for VTE Risk for VTE: Yes Risk Level: High Risk Assessment Date: 02/26/18 Risk Assessment Time: 09:58 VTE Orders Placed or Will Be Placed: Yes Plan - Detailed Diagnosis and Plan (1) Flank pain Current Visit: Yes Status: Acute Base Code: R10.9 - UNSPECIFIED ABDOMINAL PAIN Comment: 02/26/18: - left flank pain ddx: muscle strain, passage of small kidney stone, resolution of recent pyelonephritis. - non-contrast CT: negative for urolithiasis, or hydronephrosis. UA negative. - physical examination: no tenderness on balloting of the kindnet/flank area. (2) Hyperkalemia Current Visit: Yes Status: Acute Base Code: E87.5 - HYPERKALEMIA Comment: 02/26/18: - K+ 5.6 on admission. - ECG: NSR, rate approx 70, no changes due to hyperkalemia noted. - administered insulin 10 units, 1 amp D50, kayexalate 30mg PO, Nacl 0.9% @ 125mL/hr. - Pt has had bowel movement overnight. - K+ on am labs: 4.6, repeat electrolytes within one week of discharge. (3) Acute worsening of stage 4 chronic kidney disease Current Visit: Yes Status: Acute Base Code: N28.9 - DISORDER OF KIDNEY AND URETER, UNSPECIFIED; N18.4 - CHRONIC KIDNEY DISEASE, STAGE 4 (SEVERE) Comment : 02/26/18: - likely as a result of antibiotics use, dehydration and possible contrast on CT 2 weeks ago. - BUN/Cr on admission: 47/3.3, eGfr 19, no acute change in urine output. - Bun/Cr am labs: 41/3.0 - Baseline kidney function not established. Repeat labs to be drawn within one week of discharge. (4) Acute on chronic anemia Current Visit: Yes Status: Acute Base Code: D64.9 - ANEMIA, UNSPECIFIED Comment: 02/26/18: - hgb 10.9, - recent occult positive stool as per pt's PCP. - anticoagulation held while admitted, to be resumed on discharge. - risk v. benefit to be discussed and further workup as per PCP. (5) Atrial fibrillation Current Visit: Yes Status: Acute Base Code: I48.91 - UNSPECIFIED ATRIAL FIBRILLATION Comment: 02/26/18: - EKG: NSR, rate approx 70. - Telemetry: no acute arrhythmias noted overnight. - Currently on Coreg 25mg BID, Lipitor 20mg QHS, ASA 81mg and Eliquis at home. - Anticoagualtion held due to recent microscopic bleed. Pt to resume on discharge and follow up with PCP on discharge for further workup. Hgb 10.9 this admission. (6) DVT prophylaxis Current Visit: No Status: Acute Base Code: [id number] - Comment: 02/26/18: - on Eliquis for atrial fibrillation. Dose to be clarified and continued on discharge. (7) Full code status Current Visit: No Status: Acute Base Code: Z78.9 - OTHER SPECIFIED HEALTH STATUS Comment: 02/26/18: - Pt is full code. - Disposition discharge home today. Repeat labs next week.
[2018-02-26] MEDS ORDERED: AMLODIPINE BESYLATE 5MG TAB PO SCH (10:00)
--- NOTE | 2018-02-26 10:27 | Discharge Summary ---
Providers Discharge Summary Date: 02/26/18 Date of admission: 02/25/18 21:21 Attending physician: ELISA MONTALVO Primary care physician: Dung Galaviz Physical Exam - Vital Signs Vital Signs: Vital Signs - Last 24 Hrs Temp Pulse Pulse Resp BP BP Pulse Ox 02/25/18 22:18 74 18 02/25/18 21:30 97.7 F 83 18 155/78 95 02/25/18 21:15 70 140/101 02/25/18 20:56 72 20 145/86 100 02/25/18 20:03 64 20 128/66 100 02/25/18 19:42 97.9 F 65 18 118/63 99 02/25/18 18:38 97.5 F L 69 18 119/62 99 - General General Appearance: Alert, Oriented x3, Cooperative, Mild distress, Other ( ambulates with steady gait, does not appear to be in sever pain.) Limitations: No limitations - Head Head exam: Atraumatic, Normocephalic, Normal inspection Head exam detail: negative: Abrasion, Contusion, Anton's sign, General tenderness, Hematoma, Laceration - Eye Eye exam: Normal appearance. negative: Conjunctival injection, Periorbital swelling, Periorbital tenderness, Scleral icterus - ENT Ear exam: negative: Auricular hematoma, Auricular trauma Nasal Exam: negative: Active bleeding, Discharge, Dried blood, Foreign body Mouth exam: negative: Drooling, Laceration, Muffled voice, Tongue elevation - Neck Neck exam: Normal inspection. negative: Meningismus, Tenderness - Respiratory Respiratory exam: Normal lung sounds bilaterally. negative: Respiratory distress, Rhonchi, Stridor, Wheezes - Cardiovascular Cardiovascular Exam: Regular rate, Normal rhythm, Normal heart sounds Peripheral Pulses: 3+: Radial (R), Radial (L), Dorsalis Pedis (R), Dorsalis Pedis (L) - GI/Abdominal GI/Abdominal exam: Soft. negative: Hyperactive bowel sounds, Rebound, Rigid, Tenderness - Rectal Rectal exam: Deferred - exam: Deferred - Extremities Extremities exam: Normal inspection. negative: Calf tenderness, Pedal edema, Tenderness - Back Back exam: Reports: CVA tenderness (L). Denies: CVA tenderness (R) - Neurological Neurological exam: Alert, Normal gait, Oriented X3 - Psychiatric Psychiatric exam: Normal affect, Normal mood - Skin Skin exam: Normal color. negative: Abrasion Type of lesion: negative: abrasion Hospitalization - Hospitalization Admission Diagnosis: ARF. Hyperkalemia. Anemia. Flank pain - Problem List/Discharge Diagnosis (1) Flank pain Current Visit: Yes Status: Acute Base Code: R10.9 - UNSPECIFIED ABDOMINAL PAIN Comment: 02/26/18: - left flank pain ddx: muscle strain, passage of small kidney stone, resolution of recent pyelonephritis. - non-contrast CT: negative for urolithiasis, or hydronephrosis. UA negative. - physical examination: no tenderness on balloting of the kindnet/flank area. (2) Hyperkalemia Current Visit: Yes Status: Acute Base Code: E87.5 - HYPERKALEMIA Comment: 02/26/18: - K+ 5.6 on admission. - ECG: NSR, rate approx 70, no changes due to hyperkalemia noted. - administered insulin 10 units, 1 amp D50, kayexalate 30mg PO, Nacl 0.9% @ 125mL/hr. - Pt has had bowel movement overnight. - K+ on am labs: 4.6, repeat electrolytes within one week of discharge. (3) Acute worsening of stage 4 chronic kidney disease Current Visit: Yes Status: Acute Base Code: N28.9 - DISORDER OF KIDNEY AND URETER, UNSPECIFIED; N18.4 - CHRONIC KIDNEY DISEASE, STAGE 4 (SEVERE) Comment : 02/26/18: - likely as a result of antibiotics use, dehydration and possible contrast on CT 2 weeks ago. - BUN/Cr on admission: 47/3.3, eGfr 19, no acute change in urine output. - Bun/Cr am labs: 41/3.0 - Baseline kidney function not established. Repeat labs to be drawn within one week of discharge. (4) Acute on chronic anemia Current Visit: Yes Status: Acute Base Code: D64.9 - ANEMIA, UNSPECIFIED Comment: 02/26/18: - hgb 10.9, - recent occult positive stool as per pt's PCP. - anticoagulation held while admitted, to be resumed on discharge. - risk v. benefit to be discussed and further workup as per PCP. (5) Atrial fibrillation Current Visit: Yes Status: Acute Base Code: I48.91 - UNSPECIFIED ATRIAL FIBRILLATION Comment: 02/26/18: - EKG: NSR, rate approx 70. - Telemetry: no acute arrhythmias noted overnight. - Currently on Coreg 25mg BID, Lipitor 20mg QHS, ASA 81mg and Eliquis at home. - Anticoagualtion held due to recent microscopic bleed. Pt to resume on discharge and follow up with PCP on discharge for further workup. Hgb 10.9 this admission. (6) DVT prophylaxis Current Visit: No Status: Acute Base Code: [id number] - Comment: 02/26/18: - on Eliquis for atrial fibrillation. Dose to be clarified and continued on discharge. (7) Full code status Current Visit: No Status: Acute Base Code: Z78.9 - OTHER SPECIFIED HEALTH STATUS Comment: 02/26/18: - Pt is full code. - Disposition discharge home today. Repeat labs next week. - Hospitalization Course Hospital Course: Mr. Greenberg is a 82 y/o male with presentation of left lower back pain nausea and abdominal discomfort yesterday afternoon. The patient was seen at [facility] ED about two weeks ago where he was reportedly diagnosed with a "kidney infection" and started on a two week course of antibiotics. He says that his symptoms improved on the antibiotics and he took the last antibiotic about one day ago. The patient denies any urinary symptoms of pain, bleeding, itching or change in urine stream. He has medical history of chronic atrial fibrillation, hypertension and COPD. On arrival to [facility] ED the patient;s labs showed hyperkalemia and elevated creatinine at 3.3 but no baseline creatinine of note. The patients non-contrast abdominal CT was negative for any acute abdominal/pelvic findings and no hydronephrosis or renal stones noted. He was administered 1 amp D50, 10 units insulin glargine and kayexalate overnight. Vital signs on admission: BP: 119/62 HR: 69 RR: 18 T: 97.5 Sats: 99% RA PCP: Dr. Dung Galaviz Procedures: Imaging and X-Rays 02/25/18 18:55 ABDOMEN/PELVIS WO CONTRAST [CT] Stat Cardiology Procedures 02/25/18 19:57 EKG NOW Abnormal Labs: Abnormal Lab Results 02/25/18 02/25/18 02/25/18 Range/Units 19:15 19:15 21:38 RBC 4.02 L (4.40-5.70) M/uL Hgb 10.9 L (14.0-18.0) gm/dl Hct 36.4 L (42.0-52.0) % MCHC 29.9 L (32-36) g/dl Sodium 134 L (136-145) mmol/L Potassium 5.6 H (3.4-4.5) mmol/L Chloride 95 L (98-107) mmol/L BUN 47 H (8-23) mg/dL Creatinine 3.3 H (0.7-1.2) mg/dL POC Glucose 147 H (70-110) mg/dL 02/26/18 Range/Units 06:20 RBC (4.40-5.70) M/uL Hgb (14.0-18.0) gm/dl Hct (42.0-52.0) % MCHC (32-36) g/dl Sodium (136-145) mmol/L Potassium 4.6 H (3.4-4.5) mmol/L Chloride (98-107) mmol/L BUN 41 H (8-23) mg/dL Creatinine 3.0 H (0.7-1.2) mg/dL POC Glucose (70-110) mg/dL Condition at Discharge: (2) Stable Discharge Medications - Discharge Medications Home Medications: Ambulatory Orders Atorvastatin Calcium [Lipitor] 20 mg PO QHS 05/11/14 [Last Taken 05/21/17] Amlodipine Besylate [Norvasc] 10 mg PO DAILY 07/20/16 [Last Taken 05/22/17] Carvedilol 25 mg PO BID 07/21/16 [Last Taken 05/22/17] Albuterol Sulfate [Proair Hfa] 1 - 2 puff IH .EVERY 4-6 HOURS PRN #1 inhaler [Last Taken 05/22/17] Prednisone [Prednisone 10Mg] 10 mg PO ASDIR #30 tab 05/23/17 [Last Taken Unknown ] Discharge Plan - Discharge Instructions Activity at Discharge: Resume Usual Activities As Tolerated Diet at Discharge: Regular Diet, Low Fat, Low Cholesterol Additional Instructions: Please have labs drawn early next week so that we can check your kidney function and hemoglobin. Follow up with Dr. Galaviz within one week for further evaluation of your kidney and possible gastrointestinal bleed. Resume taking all of your medications as prescribed. If symptoms return go to the nearest ED. Quality Measures - Quality Measures Quality Measures: Atrial Fibrillation & Atrial Flutter: Chronic Anticoagulation Therapy, Advance Directives, Documentation of Current Medications in Medical Record, Elder Maltreatment Screen and Follow-Up Plan, Screening for High Blood Pressure and F/U Documented - Current Medications Quality Measure: Measure #130: Documentation of Current Medications Documentation of Current Medications: <Current Medications Documented/Reviewed> [[id number]] - Blood Pressure Screening Quality Measure: Screening for High Blood Pressure and Follow-Up Documented Does Patient Have Any of the Following: Active Dx of HTN Blood Pressure Classification: Normal BP Reading Systolic Measurement: 119 Diastolic Measurement: 62 Screening for High Blood Pressure: Patient Exclusion, Hx of HTN [G9744] - Atrial Fibrillation and Atrial Flutter Quality Measure: Atrial Fibrillation & Atrial Flutter: Chronic Anticoagulation Therapy Does Patient Have Any of the Following: No CHADS2 Risk Stratification: Age 75 or Greater, Hypertension, Heart Failure or Impaired LVSF Risk Stratification Summary: One or more high risk factors OR more than one moderate risk factor exists. [G8972] Anticoagulation Therapy: Not Prescribed for Medical Reason [G8968] Medical Reason for NOT Prescribing Anticoagulant: Risk of Bleeding - Advance Directives Quality Measure: Measure #47: Care Plan Advance Directives Established: No Advance Directives Information Provided To Patient: Yes Advance Directives on File: No Power of Overnight Stocker: Yes Power of Overnight Stocker Name: NADEGE GREENBERG [employer]SE. Advance Care Planning: <Care Plan/Decision Maker Documented; Discussed & Documented> [[id number]] - Elder Abuse Suspicion Index Screening: Elder Abuse Suspicion Index Screening Rely on people for bathing, dressing, shopping, banking, etc: No Prevented from getting food, clothes, medication, etc: No Made to feel shamed or threatened by someone: No Forced to sign papers or use money against will: No Feel afraid, touched in ways not wanted or hurt physically: No Poor eye contact, withdrawn, malnourished, cuts or bruises: No Screening Result: Negative result EASI Reference Information: Brett VEGAS, Olivia Camarena, Kush D, Nito Mcbride.Development and validation of a tool to assist physicians identification of elder abuse: The Elder Abuse Suspicion Index (EASI ). Journal of Elder Abuse and Neglect, 2008; 20 (3): 276-300. - Elder Maltreatment Screen Quality Measures: Elder Maltreatment Screen and Follow-Up Plan Elder Maltreatment Screen: <Negative, No Follow-Up Plan Required> [G6506]
== END 2018-02-26 13:18 | disposition home or self-care (01) ==
LOC: ER 18:30 → MEDSURG 21:21
PROVIDERS: ADMIT Internal Medicine; ATTEND Internal Medicine
DX: N18.4 Chronic kidney disease, stage 4 (severe) (principal); E78.5 Hyperlipidemia, unspecified; D64.89 Other specified anemias; I48.91 Unspecified atrial fibrillation; Z79.01 Long term (current) use of anticoagulants; J44.9 Chronic obstructive pulmonary disease, unspecified; I50.9 Heart failure, unspecified; I25.2 Old myocardial infarction; I10 Essential (primary) hypertension; M19.90 Unspecified osteoarthritis, unspecified site; Z87.891 Personal history of nicotine dependence
CPT/HCPCS: 83735; 85025; 80048; 80053; 36416; 82948; 81003; 74176; 93005; 93010; G0378 ×2; 96374; 99220; 99285

== ENCOUNTER 2018-08-11 06:40 | Emergency (ER) | payer MEDICARE ==
[2018-08-11] MEDS ORDERED: HYDRALAZINE HCL 25 MG TABLET PO ONE (07:10)
--- NOTE | 2018-08-11 07:10 | Emergency Department Record ---
History of Present Illness - General Chief Complaint: Shortness of breath Stated Complaint: SUDEEP Time Seen by Provider: 08/11/18 07:04 Source: Patient Mode of Arrival: EMS - History of Present Illness Initial Comments: sob for 3-4 days and he has a history of CHF and valve disease and hypertension. Patient also has chest heaviness but mostly SOB. PMH of renal failure ,CHF Patient presented via ambulance [facility] to walk 10 feet and becomes SOB. Patient thinks he has aortic stenosis PSH AAA stent placed about 2010 Onset/Timin -: Days(s) Worsens With: Exertion, Movement Known History Of: Congestive heart failure, COPD Associated Symptoms: Cough Treatments Prior to Arrival: Bronchodilator - Related Data Home Oxygen Therapy: Yes Home Oxygen Amount: 2 Liters Home Medications Medication Instructions Recorded Confirmed Last Taken Apixaban [Eliquis] 5 mg PO BID 08/11/18 08/11/18 Unknown Aspirin [Aspir-Low] 81 mg PO DAILY 08/11/18 08/11/18 Unknown Budesonide/Formoterol Fumarate 1 inh IH DAILY 08/11/18 08/11/18 Unknown [Symbicort 80-4.5 Mcg Inhaler] Ferrous Sulfate 325 mg PO DAILY 08/11/18 08/11/18 Unknown Hydralazine HCl 25 mg PO TID 08/11/18 08/11/18 Unknown Isosorbide Dinitrate 10 mg PO TID 08/11/18 08/11/18 Unknown Propafenone HCl [Propafenone HCl 225 mg PO BID 08/11/18 08/11/18 Unknown ER] Previous Rx's Medication Instructions Recorded Albuterol Sulfate [Proair Hfa] 1 - 2 puff IH .EVERY 4-6 HOURS PRN 07/23/16 #1 inhaler Amoxicillin 500Mg Capsule [Amoxil] 500 mg PO TID #30 tab 08/11/18 Allergies Allergy/AdvReac Type Severity Reaction Status Date / Time No Known Drug Allergies Allergy Verified 02/25/18 18:45 Travel Screening - Travel/Exposure Within Last 30 Days Have you traveled within the last 30 days?: No - Travel Symptoms Symptom Screening: None Review of Systems Reviewed: No additional complaints except as noted below Constitutional: Reports: As per HPI. Denies: Chills, Fever, Malaise, Night sweats, Weakness, Weight change Eyes: Reports: As per HPI. Denies: Eye discharge, Eye pain, Photophobia, Vision change ENT: Reports: As per HPI. Denies: Congestion, Dental pain, Ear pain, Epistaxis , Hearing loss, Throat pain Respiratory: Reports: As per HPI, Dyspnea. Denies: Cough, Hemoptysis, Stridor, Wheezes Cardiovascular: Reports: As per HPI, Dyspnea on exertion. Denies: Arrhythmia, Chest pain, Edema, Murmurs, Orthopnea, Palpitations, Paroxysmal nocturnal dyspnea, Rheumatic Fever, Syncope Endocrine: Reports: As per HPI. Denies: Fatigue, Heat or cold intolerance, Polydipsia, Polyuria Gastrointestinal: Reports: As per HPI. Denies: Abdominal pain, Constipation, Diarrhea, Hematemesis, Hematochezia, Melena, Nausea, Vomiting Genitourinary: Reports: As per HPI. Denies: Dysuria, Frequency, Hematuria, Incontinence, Retention, Testicular pain, Testicular mass, Urgency Musculoskeletal: Reports: As per HPI. Denies: Arthralgia, Back pain, Gout, Joint swelling, Myalgia, Neck pain Skin: Reports: As per HPI. Denies: Bruising, Change in color, Change in hair/ nails, Lesions, Pruritus, Rash Neurological: Reports: As per HPI. Denies: Abnormal gait, Confusion, Headache, Numbness, Paresthesias, Seizure, Tingling, Tremors, Vertigo, Weakness Psychiatric: Reports: As per HPI. Denies: Anxiety, Auditory hallucinations, Depression, Homicidal thoughts, Suicidal thoughts, Visual hallucinations Hematological/Lymphatic: Reports: As per HPI. Denies: Anemia, Blood Clots, Easy bleeding, Easy bruising, Swollen glands Past Medical History - SOCIAL HISTORY Smoking Status: Former smoker - RESPIRATORY Hx Respiratory Disorders: Yes Hx COPD: Yes (home O2- 2L) Comment:: only when he needs it - CARDIOVASCULAR Hx Cardio Disorders: Yes Hx CHF: Yes Hx Heart Attack: Yes Hx Hypertension: Yes - NEURO Hx Neuro Disorders: No - GI Hx GI Disorders: No - Hx Genitourinary Disorders: Yes Comment:: kidney/bladder infections - ENDOCRINE Hx Endocrine Disorders: No - MUSCULOSKELETAL Hx Musculoskeletal Disorders: Yes Hx Arthritis: Yes - PSYCH Hx Psych Problems: No - HEMATOLOGY/ONCOLOGY Hx Hematology/Oncology Disorders: No Family Medical History Any Significant Family History?: Yes Hx Heart Disease: Father Hx HTN: Mother Physical Exam - General General Appearance: Alert, Oriented x3, Cooperative, No acute distress - Head Head exam: Normal inspection - Eye Eye exam: Normal appearance, PERRL Pupils: Normal accommodation - ENT ENT exam: Normal exam, Mucous membranes moist, Normal external ear exam, Normal orophraynx, TM's normal bilaterally Ear exam: Normal external inspection. negative: External canal tenderness Nasal Exam: Normal inspection. negative: Discharge, Sinus tenderness Mouth exam: Normal external inspection, Tongue normal Teeth exam: Normal inspection. negative: Dental caries Throat exam: Normal inspection. negative: Tonsillar erythema, Tonsillar exudate - Neck Neck exam: Normal inspection, Full ROM. negative: Tenderness - Respiratory Respiratory exam: Normal lung sounds bilaterally. negative: Respiratory distress - Cardiovascular Cardiovascular Exam: Regular rate, Normal rhythm, Normal heart sounds, Other ( No aortic murmer heard) - GI/Abdominal GI/Abdominal exam: Soft, Normal bowel sounds. negative: Tenderness - Rectal Rectal exam: Deferred - exam: Deferred - Extremities Extremities exam: Normal inspection, Full ROM, Normal capillary refill. negative: Tenderness - Back Back exam: Reports: Normal inspection, Full ROM. Denies: Muscle spasm, Rash noted, Tenderness - Neurological Neurological exam: Alert, Normal gait, Oriented X3, Reflexes normal - Psychiatric Psychiatric exam: Normal affect, Normal mood - Skin Skin exam: Dry, Intact, Normal color, Warm Course Vital Signs 08/11/18 06:44 Pulse Rate 88 Respiratory 20 Rate Blood Pressure 200/105 Pulse Ox 100 - Reevaluation(s) Reevaluation #1: Discussed case with Dr. Brower and he went over his Echo with me from 2017 and he has mitral valve disease moderate and EJ fraction was 55%. Will try to diuresis him olightly and watch his kidney function closely and have him follow p with Dr. Stone as scheduled. he also has some sinus congestion and a cough so will start him on amoxil 500 mg tid 08/11/18 11:51 Reevaluation #2: patient ambulated around the [place] and pulse ox went down to 92 % only on room air and he said he was slightly SOB but he didn't look bad. 08/11/18 11:57 Medical Decision Making - Data Complexity MDM Data: Labs Ordered and/or Reviewed (trop neg, bun 22 ,creat 1.6 k 4.4), X- Ray Ordered and/or Reviewed (chest xray small pleural effusion), EKG Ordered and /or Reviewed (EKG NSR, ST elevation V1,V2,V3 similiar to 02/25/2018) - Lab Data Result diagrams: 08/11/18 06:45 08/11/18 06:45 Disposition Clinical Impression: COPD (chronic obstructive pulmonary disease) with acute bronchitis Dyspnea Qualifiers: Dyspnea type: dyspnea on exertion Qualified Code(s): R06.09 - Other forms of dyspnea Chronic kidney disease Qualifiers: Chronic kidney disease stage: stage 3 (moderate) Qualified Code(s): N18.3 - Chronic kidney disease, stage 3 (moderate) Sinusitis Qualifiers: Sinusitis location: unspecified location Chronicity: acute Recurrence: non- recurrent Qualified Code(s): J01.90 - Acute sinusitis, unspecified Atrial fibrillation Qualifiers: Atrial fibrillation type: paroxysmal Qualified Code(s): I48.0 - Paroxysmal atrial fibrillation Condition: (1) Good Instructions: Sinusitis (ED), Acute Bronchitis (ED) Additional Instructions: follow up with Dr. Galaviz at 11 am on August 16 in the office Prescriptions: Amoxicillin 500Mg Capsule [Amoxil] 500 mg PO TID #30 tab Forms: Patient Portal Access Time of Disposition: 12:03 Quality - Quality Measures Quality Measures: N/A - Blood Pressure Screening Does Patient Have Any of the Following: No, Active Dx of HTN Blood Pressure Classification: Hypertensive Reading Systolic Measurement: 200 Diastolic Measurement: 105 Screening for High Blood Pressure: Patient Exclusion, Hx of HTN [[id number]]
[2018-08-11] MEDS ORDERED: ASPIRIN 81 MG CHEWABLE TABLET PO ONE (07:11)
[2018-08-11 07:21] LABS: BASO % 0.2 % (0-6); EOS % 3.5 % (0-6); GRAN % 59.1 % (47-80); HEMATOCRIT 38.1 % (42.0-52.0); HEMOGLOBIN 11.3 gm/dl (14.0-18.0); LYMPH % 23.3 % (16-45); MEAN CORPUSCULAR HGB CONC 29.7 g/dl (32-36); MEAN PLATELET VOLUME 10.1 fl (7.4-10.4); MONO % 13.9 % (0-9); PLATELET COUNT 207 K/uL (130-400); RED BLOOD COUNT 4.33 M/uL (4.40-5.70)
[2018-08-11 07:27] LABS: BLOOD UREA NITROGEN 22 mg/dL (8-23); CREATININE 1.6 mg/dL (0.7-1.2); EST GLOMERULAR FILTRATION RATE 44 mL/min
[2018-08-11 07:30] LABS: GLUCOSE,RANDOM 86 mg/dL (74-109)
[2018-08-11] MEDS ORDERED: ALBUTEROL HFA 8 GM INHALER INH ONE (10:43)
[2018-08-11] MEDS ORDERED: FUROSEMIDE 20 MG TABLET PO ONE (11:56)
--- NOTE | 2018-08-13 16:26 | RADIOLOGY REPORT ---
DATE: 08/11/2018. EXAM: TWO-VIEW CHEST. HISTORY: Difficulty in breathing. TECHNIQUE: Frontal and lateral views of the chest were performed. COMPARISON: 05/22/2017. FINDINGS: Heart size is normal. The lungs are hyperinflated. Tortuous thoracic vertebrae. Small pleural effusions. IMPRESSION: 1. SMALL PLEURAL EFFUSIONS. 2. HYPERINFLATED LUNGS. Job Number: [id number] MTDD
== END 2018-08-11 12:43 | disposition home or self-care (01) ==
LOC: ER 06:40
DX: J44.9 Chronic obstructive pulmonary disease, unspecified (principal); J20.9 Acute bronchitis, unspecified; N18.3 Chronic kidney disease, stage 3 (moderate); R06.09 Other forms of dyspnea; J01.90 Acute sinusitis, unspecified; I48.0 Paroxysmal atrial fibrillation; I10 Essential (primary) hypertension; I50.9 Heart failure, unspecified; I25.2 Old myocardial infarction; Z87.891 Personal history of nicotine dependence; Z99.81 Dependence on supplemental oxygen
CPT/HCPCS: 71046; 80048; 84484; 85025; 85730; 93005; 93010; 99284

== ENCOUNTER 2018-11-22 16:37 | Observation (INO) | payer MEDICARE ==
--- NOTE | 2018-11-22 18:00 | Emergency Department Record ---
History of Present Illness - General Chief complaint: Vomiting Stated complaint: VOMITING,FEVER, Time Seen by Provider: 11/22/18 17:43 Source: Patient Mode of Arrival: Ambulatory Limitations: No limitations - History of Present Illness Initial comments: pt is sob, feverish, chills. he has copd, chf and kidney problems MD complaint: Nausea Onset/Timin -: Days(s) Description of Vomiting: Bloody Severity: Mild Consistency: Constant Associated Symptoms: Fever/chills, Malaise, Myalgias, Nausea/vomiting, Shortness of breath, Weakness - Related Data Home Medications Medication Instructions Recorded Confirmed Last Taken Albuterol Sulfate [Proventil Hfa] 1 - 2 puff INH .EVERY 4-6 HOURS PRN 11/22/18 11/22/18 11/22/18 Allergies Allergy/AdvReac Type Severity Reaction Status Date / Time No Known Drug Allergies Allergy Verified 11/22/18 17:13 Travel Screening - Travel/Exposure Within Last 30 Days Have you traveled within the last 30 days?: No Review of Systems Reviewed: No additional complaints except as noted below Constitutional: Reports: Chills, Fever, Weakness Eyes: Reports: As per HPI. Denies: Eye discharge, Eye pain, Photophobia, Vision change ENT: Reports: As per HPI. Denies: Congestion, Dental pain, Ear pain, Epistaxis, Hearing loss, Throat pain Respiratory: Reports: As per HPI, Dyspnea. Denies: Cough, Hemoptysis, Stridor, Wheezes Cardiovascular: Reports: As per HPI. Denies: Arrhythmia, Chest pain, Dyspnea on exertion, Edema, Murmurs, Orthopnea, Palpitations, Paroxysmal nocturnal dyspnea, Rheumatic Fever, Syncope Endocrine: Reports: As per HPI. Denies: Fatigue, Heat or cold intolerance, Polydipsia, Polyuria Gastrointestinal: Reports: As per HPI, Nausea, Vomiting. Denies: Abdominal pain, Constipation, Diarrhea, Hematemesis, Hematochezia, Melena Genitourinary: Reports: As per HPI. Denies: Dysuria, Frequency, Hematuria, Incontinence, Retention, Testicular pain, Testicular mass, Urgency Musculoskeletal: Reports: As per HPI. Denies: Arthralgia, Back pain, Gout, Joint swelling, Myalgia, Neck pain Skin: Reports: As per HPI. Denies: Bruising, Change in color, Change in hair/nails, Lesions, Pruritus, Rash Neurological: Reports: As per HPI. Denies: Abnormal gait, Confusion, Headache, Numbness, Paresthesias, Seizure, Tingling, Tremors, Vertigo, Weakness Psychiatric: Reports: As per HPI. Denies: Anxiety, Auditory hallucinations, Depression, Homicidal thoughts, Suicidal thoughts, Visual hallucinations Hematological/Lymphatic: Reports: As per HPI. Denies: Anemia, Blood Clots, Easy bleeding, Easy bruising, Swollen glands Past Medical History - SOCIAL HISTORY Smoking Status: Former smoker Alcohol Use: None Drug Use: None - RESPIRATORY Hx Respiratory Disorders: Yes Hx COPD: Yes (home O2- 2L) Comment:: only when he needs it - CARDIOVASCULAR Hx Cardio Disorders: Yes Hx CHF: Yes Hx Heart Attack: Yes Hx Hypertension: Yes Comment:: "one valve no functioning" - NEURO Hx Neuro Disorders: No - GI Hx GI Disorders: No - Hx Genitourinary Disorders: Yes Comment:: kidney/bladder infections - ENDOCRINE Hx Endocrine Disorders: No - MUSCULOSKELETAL Hx Musculoskeletal Disorders: Yes Hx Arthritis: Yes - PSYCH Hx Psych Problems: No - HEMATOLOGY/ONCOLOGY Hx Hematology/Oncology Disorders: No Family Medical History Any Significant Family History?: Yes Hx Heart Disease: Father Hx HTN: Mother Physical Exam - General General Appearance: Alert, Oriented x3, Cooperative, Mild distress - Head Head exam: Normal inspection - Eye Eye exam: Normal appearance, PERRL, EOMI Pupils: Normal accommodation - ENT ENT exam: Normal exam, Mucous membranes moist, Normal external ear exam, Normal orophraynx Ear exam: Normal external inspection. negative: External canal tenderness Nasal Exam: Normal inspection. negative: Discharge, Sinus tenderness Mouth exam: Normal external inspection, Tongue normal Teeth exam: Normal inspection. negative: Dental caries Throat exam: Normal inspection. negative: Tonsillar erythema, Tonsillar exudate - Neck Neck exam: Normal inspection, Full ROM. negative: Tenderness - Respiratory Respiratory exam: Normal lung sounds bilaterally. negative: Respiratory distress - Cardiovascular Cardiovascular Exam: Normal rhythm, Normal heart sounds, Tachycardia - GI/Abdominal GI/Abdominal exam: Soft, Normal bowel sounds. negative: Tenderness - Rectal Rectal exam: Deferred - exam: Deferred - Extremities Extremities exam: Normal inspection, Full ROM, Normal capillary refill. negative: Tenderness - Back Back exam: Reports: Normal inspection, Full ROM. Denies: Muscle spasm, Rash noted, Tenderness - Neurological Neurological exam: Alert, CN II-XII intact, Normal gait, Oriented X3 - Psychiatric Psychiatric exam: Normal affect, Normal mood - Skin Skin exam: Dry, Intact, Normal color, Warm Course Vital Signs 11/22/18 17:07 Temperature 99.0 F Pulse Rate 114 H Respiratory 24 Rate Blood Pressure 168/90 Pulse Ox 95 Medical Decision Making - Lab Data Result diagrams: 11/22/18 17:35 11/22/18 17:35 Disposition Disposition: Admit Clinical Impression: Pyelonephritis Sepsis Qualifiers: Sepsis type: sepsis due to unspecified organism Qualified Code(s): A41.9 - Sepsis, unspecified organism Disposition: Still a Patient at [facility] Decision to Admit: Admit from ER Decision to Admit Date: 11/22/18 Decision to Admit Time: 18:30 Forms: Patient Portal Access Quality - Quality Measures Quality Measures: N/A - Blood Pressure Screening Does Patient Have Any of the Following: Active Dx of HTN Blood Pressure Classification: Hypertensive Reading Systolic Measurement: 168 Diastolic Measurement: 90 Screening for High Blood Pressure: Patient Exclusion, Hx of HTN [G9744]
[2018-11-22 18:08] LABS: HEMATOCRIT 42.4 % (42.0-52.0); MEAN CELL VOLUME 89.1 fl (81-97); MEAN CORPUSCULAR HEMOGLOBIN 27.3 pg (27-33); MEAN CORPUSCULAR HGB CONC 30.7 g/dl (32-36); MEAN PLATELET VOLUME 10.2 fl (7.4-10.4); PLATELET COUNT 153 K/uL (130-400); RED BLOOD COUNT 4.76 M/uL (4.40-5.70); RED CELL DISTRIBUTION WIDTH 15.6 % (11.5-14.5); URINE BILIRUBIN NEGATIVE (NEGATIVE); URINE BLOOD MODERATE (NEGATIVE); URINE COLOR YELLOW; URINE GLUCOSE (UA) NEGATIVE (NEGATIVE); URINE KETONE NEGATIVE (NEGATIVE); URINE LEUKOCYTE ESTERASE SMALL (NEGATIVE); URINE NITRITE POSITIVE (NEGATIVE); URINE PROTEIN TRACE (NEGATIVE); URINE UROBILINOGEN 0.2 E.U./dL (0.20 - 1.00); WHITE BLOOD COUNT W/O DIFF 7.9 K/uL (4.2-12.2)
[2018-11-22 18:15] LABS: CREATININE 2.1 mg/dL (0.7-1.2)
[2018-11-22 18:23] LABS: NTpro B-NATRIURETIC PEPTIDE 823.1 pg/mL (<450); URINE APPEARANCE SL CLOUDY
[2018-11-22 18:24] LABS: URINE EPITHELIAL CELLS 0 - 2 (FEW); URINE WBC 21 - 35 (0-2/hpf)
[2018-11-22 18:25] LABS: URINE BACTERIA 2+
[2018-11-22] MEDS ORDERED: CIPROFLOXACIN LACTATE/D5W 400 MG/200 ML BAG IVPB ONE (18:26)
[2018-11-22] MEDS ORDERED: ONDANSETRON HCL IV 4 MG/2 ML VIAL IVP ONE (19:35)
[2018-11-22] MEDS ORDERED: ACETAMINOPHEN 500 MG TABLET PO PRN (20:05)
[2018-11-22] MEDS ORDERED: ALBUTEROL HFA 8 GM INHALER INH PRN (20:05)
[2018-11-22] MEDS ORDERED: PROPAFENONE HCL 225 MG PO SCH (22:00)
[2018-11-22] MEDS ORDERED: CARVEDILOL 12.5 MG TABLET PO SCH (22:00)
[2018-11-22] MEDS ORDERED: ATORVASTATIN 20 MG TABLET PO SCH (22:00)
[2018-11-22] MEDS ORDERED: APIXABAN 5MG TABLET PO SCH (22:00)
[2018-11-23] MEDS ORDERED: CIPROFLOXACIN LACTATE/D5W 400 MG/200 ML BAG IVPB SCH (06:00)
[2018-11-23] MEDS ORDERED: ALBUTEROL HFA 8 GM INHALER INH PRN (08:15)
--- NOTE | 2018-11-23 08:24 | Discharge Note ---
VTE H&P Assessment - Risk for VTE Risk for VTE: Yes Risk Level: Moderate Risk Assessment Date: 11/23/18 Risk Assessment Time: 08:19 VTE Orders Placed or Will Be Placed: Yes Discharge Medications - Discharge Medications Prescriptions: Ciprofloxacin HCl [Cipro] 500 mg PO Q12HR #20 tablet Home Medications: Ambulatory Orders Atorvastatin Calcium [Lipitor] 20 mg PO QHS 05/11/14 [Last Taken 11/21/18] Carvedilol 25 mg PO BID 07/21/16 [Last Taken 11/22/18] Apixaban [Eliquis] 5 mg PO BID 08/11/18 [Last Taken 11/22/18] Ferrous Sulfate 325 mg PO DAILY 08/11/18 [Last Taken 11/22/18] Propafenone HCl [Propafenone HCl ER] 225 mg PO BID 08/11/18 [Last Taken 11/22/18] Albuterol Sulfate [Proventil Hfa] 1 - 2 puff INH .EVERY 4-6 HOURS PRN 11/22/18 [Last Taken 11/22/18] Ciprofloxacin HCl [Cipro] 500 mg PO Q12HR #20 tablet 11/23/18 [Last Taken Unknown] Discharge Note - Date Date of Discharge Note: 11/23/18 Disposition: Home, Self-Care Condition: (1) Good Instructions: Urinary Tract Infection in Men (DC) Additional Instructions: follow up with Dr Galaviz on 11/25/2018 Forms: Patient Portal Access Activity at Discharge: Increase Activity as Tolerated Diet at Discharge: Low Salt Diet
[2018-11-23] MEDS ORDERED: FERROUS SULFATE 325 MG TAB PO SCH (10:00)
--- NOTE | 2018-11-23 11:20 | History and Physical Report ---
DATE OF ADMISSION: 11/23/2018 CHIEF COMPLAINT: Vomiting, fever, chills, worsening of his shortness of breath. He states that he had a fever of 103 at home. He also has problems with his kidneys with chronic kidney disease. He also has flank pain on and off. The patient was seen by Dr. Deleon and admitted to the hospital for a urinary tract infection, pyelonephritis, rule out sepsis. Upon my examination, the patient was feeling much better. Had no fevers throughout the night. His highest temperature was 99 documented in the hospital. The patient stated he vomited twice yesterday. No diarrhea, no cough. The patient was admitted to the hospital, [facility]. His urine showed WBCs 21-35, 2+ bacteria. Urine cultures were sent. Positive nitrite. PAST MEDICAL HISTORY: He has chronic renal disease. He uses home oxygen 2L for COPD. He has not been using it much lately. He has had congestive heart failure, hypertension, coronary artery disease. He has arthritis. PAST SURGICAL HISTORY: Abdominal aortic aneurysm repaired with a stent. MEDICATIONS: 1. Lipitor 20 mg at h.s. 2. Proventil 1-2 puffs q.4 h. 3. Propafenone 225 mg b.i.d. 4. Ferrous sulfate 325 daily. 5. Carvedilol 25 mg b.i.d. 6. Eliquis 5 mg b.i.d. The patient states that he was using Symbicort but it bothered him, caused a hoarse voice and he stopped that. ALLERGIES: No known drug allergies. FAMILY/PSYCHOSOCIAL HISTORY: He is a former smoker. Stopped smoking in 2010. His father had heart disease, mother had hypertension. REVIEW OF SYSTEMS: HEENT: No cough, cold, or congestion. Cardiovascular: No chest pain, palpitations, or arrhythmia. Respiratory: Slightly short of breath; however, he has more flank pain, chills, fever, and vomiting. Gastrointestinal: Vomiting, vomited twice yesterday. Some nausea, indigestion. No significant abdominal pain. He does have flank pain bilaterally on and off. Genitourinary: See Chief Complaint. He denies dysuria but his urine is contaminated and shows signs of infection. Musculoskeletal: He has arthritis but moving all 4 extremities. Neurological: No CVA, paralysis, or paresthesias. Endocrine: No diabetes or thyroid disease. Integument: No rash, ulcers, change in moles, or yellow skin. PHYSICAL EXAMINATION: VITALS: Height documented in the chart, weight 182 pounds. Vital signs on admission 98.1, pulse 110, blood pressure 195/91, respiratory rate 24, pulse ox 89% on room air. He does have home O2 at home at 2L/min nasal cannula. His weight is 200 pounds. Actually, standing weight on the scales is 190 pounds. His height is 5 feet 9 inches. The stated weight was in the ER. HEENT: Pupils are equal, round, and reactive to light and accommodation. Extraocular muscles are intact. Throat is clear. Nose is clear. Tympanic membranes are uriostegui. NECK: Supple. No jugular venous distention. No hepatojugular reflux. No carotid bruits. Thyroid is smooth. CARDIOVASCULAR: Regular rate and rhythm without murmurs, clicks, rubs, or gallops. RESPIRATORY: Clear to auscultation and percussion. ABDOMEN: Soft, nontender. No hepatosplenomegaly, no masses, no tenderness. Bowel sounds are active. He has no pain on palpation of the flanks at this time. EXTREMITIES: No pitting edema. No cyanosis, no clubbing. Full range of motion. Peripheral pulses are good. BREASTS: Normal male breasts. RECTAL: Exam deferred. GENITALIA: Deferred. NEUROLOGIC: Cranial nerves II-XII intact. No gross defects. Sensation normal, strength normal. Deep tendon reflexes equal bilaterally with Babinski negative. MENTAL STATUS: Alert and oriented x3. IMPRESSION: 1. Urinary tract infection. 2. Possible pyelonephritis. 3. Chronic kidney disease. PLAN: Change to observation. Discharge on oral Cipro 500 mg twice a day. Follow up with Dr. Galaviz in close followup in 2 days. [facility]
--- NOTE | 2018-11-23 11:30 | Discharge Summary ---
DISCHARGE DIAGNOSES: 1. Urinary tract infection. 2. Possible pyelonephritis. 3. Chronic kidney disease. 4. Chronic obstructive pulmonary disease and on home oxygen at 2L/min. 5. Hypertension. 6. Coronary artery disease. ATTENDING PHYSICIAN: Dung Galaviz DO REASON FOR HOSPITALIZATION: This 83-year-old male came in with fever, 103 at home, chills, bilateral flank pain, and vomiting. Evaluated by Dr. Deleon, admitted to the hospital for a urinary tract infection and possible pyelonephritis and sepsis. Urine culture was sent. SIGNIFICANT FINDINGS: Urine showing nitrate positive, 21-35 WBCs, 2+ bacteria. He also had a lactic acid done which was in the normal range at 1.3. His brain natriuretic peptide is about at his baseline of 823. His WBC is 7900, hemoglobin 13. Basic metabolic profile shows potassium 4.9, BUN 31, creatinine 2.1. Chest x-ray with no acute changes. THERAPY PROVIDED: IV Cipro. Feeling much better on the day I saw him, today. HOSPITAL COURSE: The patient improved dramatically with fluids and 2 doses of IV Cipro. No flank pain. CONDITION ON DISCHARGE: Much improved. We will switch him over to an observation patient. DISCHARGE INSTRUCTIONS: Follow up with Dr. Galaviz on . Continue Cipro 500 mg twice a day. Continue his home medications. MTDD
--- NOTE | 2018-11-24 08:58 | RADIOLOGY REPORT ---
EXAMINATION: Chest 2 view. CLINICAL HISTORY: Dyspnea. COMPARISON: 08/11/2018 FINDINGS: Cardiomediastinal silhouette is stable. Lungs and pleural spaces are clear. There may be slight pulmonary hyperaeration, which can be seen in the setting of COPD. IMPRESSION: No acute cardiopulmonary abnormality. Possible COPD. MTDD
== END 2018-11-23 10:31 | disposition home or self-care (01) ==
LOC: ER 16:37 → INTOOBSV 19:53 → MEDSURG 19:53
PROVIDERS: ADMIT Internal Medicine; ATTEND Emergency Medicine
DX: A41.9 Sepsis, unspecified organism (principal); N12 Tubulo-interstitial nephritis, not specified as acute or chronic; N39.0 Urinary tract infection, site not specified; R50.9 Fever, unspecified; R06.02 Shortness of breath; I10 Essential (primary) hypertension; J44.9 Chronic obstructive pulmonary disease, unspecified; I50.9 Heart failure, unspecified; I25.2 Old myocardial infarction; N28.9 Disorder of kidney and ureter, unspecified; M19.90 Unspecified osteoarthritis, unspecified site; Z87.891 Personal history of nicotine dependence
CPT/HCPCS: 71046; 80048; 81001; 83605; 83880; 85027; 93005; 93010; 94640; 96365; 99285; J2405